=== PATIENT | female | born 1940 | race Caucasian/White ===

== ENCOUNTER 2017-05-19 13:31 | Emergency (ER) | payer OTHER ==
[~2017-05-19] VITALS: Ht 157.5 cm; Wt 90.3 kg
[~2017-05-19 13:31] MED LIST: ALBU1AER9; AMLO5TAB2 PO; ATEN-175 PO; CHOL100010 PO; LEVO75TA PO; MONT1TAB3 PO; OMEP40CA PO; SERT50TA PO; SYMIN160 INH
[2017-05-19 13:36] VITALS: TEMP 37.3; Ht 157.5 cm; Wt 90.3 kg
--- NOTE | 2017-05-19 14:14 | EMERGENCY ROOM VISIT NOTE ---
History Report prepared by Leanna: Nickolas Sow Under the Supervision of: Dr. Behzad Weeks M.D. First contact with patient: 14:00 Chief Complaint: SWELLING TO EXTREMITY Stated Complaint: SWELLING IN FEET AND ANKLES, HYPERTENSION History of Present Illness The patient is a 76 year old female who presents to the Emergency Room with complaints of intermittent edema to her lower extremities that started a couple of weeks ago. The patient admits that her swelling is relieved after laying down and propping her legs up. She reports that as the day goes on her swelling worsens. The patient states that she is currently experiencing the lower extremity edema. She states that her PCP retired and she cannot get an appointment until November. The patient admits that she has another appointment with someone else in July. She admits that she has children. The patient denies wearing compression socks. Source of History: patient Onset: a couple of weeks ago Position: leg (bilateral) Quality: other (swelling) Timing: intermittent Modifying Factors (Worsening): other (standing up) Modifying Factors (Relieving): other (elevating legs, laying down) Review of Systems See HPI for pertinent positives & negatives. A total of 10 systems reviewed and were otherwise negative. Past Medical & Surgical Medical Problems: (1) Asthma (2) Depressive disorder (3) GERD (gastroesophageal reflux disease) (4) HTN (hypertension) (5) Hypothyroidism (6) Multiple sclerosis Surgical Problems: (1) History of appendectomy (2) History of cervical spinal surgery (3) History of cholecystectomy (4) History of lumbar surgery Family History Patient reports no known family medical history. Social History Smoking Status: Never Smoker Housing Status: lives alone Occupation Status: retired Current/Historical Medications Scheduled Amlodipine Besylate (Norvasc), 10 MG PO DAILY Atorvastatin (Lipitor), Unknown Dose PO DAILY Baclofen (Baclofen), 20 MG PO HS Fluticasone Propionate (Flovent Hfa), 2 PUFFS INH BID Hydrochlorothiazide (Hctz), 1 TAB PO DAILY Levothyroxine Sodium (Synthroid), 75 MCG PO DAILY Metoprolol Tartrate (Lopressor) (Lopressor), 100 MG PO BID Montelukast Sodium (Singulair), 10 MG PO DAILY Omeprazole (Prilosec), 40 MG PO DAILY Sertraline (Zoloft), 50 MG PO DAILY Miscellaneous Medications Albuterol Sulfate (Proair Respiclick) Allergies Coded Allergies: Naproxen (Unverified Allergy, Severe, GI Bleed, 05/19/17) Morphine and Related (Unverified Adverse Reaction, Intermediate, difficulty breathing, 05/19/17) Fluticasone (Unverified Adverse Reaction, Mild, hives, 05/19/17) Physical Exam Vital Signs Date Time Temp Pulse Resp B/P (MAP) Pulse Ox O2 Delivery O2 Flow Rate FiO2 05/19/17 16:56 58 18 131/74 95 05/19/17 16:24 54 18 132/69 94 05/19/17 15:22 53 18 156/74 94 05/19/17 14:24 96 Room Air 05/19/17 14:24 96 Room Air 05/19/17 14:11 53 05/19/17 13:36 37.3 62 18 127/73 95 Room Air Physical Exam GENERAL: Patient is a healthy-appearing well-nourished 76 year old female. HEAD: Normocephalic atraumatic EYES: Ocular movements intact pupils equal and react to light OROPHARYNX mucous membranes are moist no exudates present no erythema or edema present NECK: Supple no nuchal rigidity CHEST: Good equal expansion LUNGS: Clear and equal to auscultation CARDIAC: Normal S1 and S2 ABDOMEN: Soft nontender no guarding BACK: No CVA tenderness EXTREMITIES: No pain upon palpation normal muscle strength in all groups no clubbing cyanosis or edema. No pitting edema. NEURO: Patient is following commands and answering questions appropriately. Alert and oriented x3 Cranial Nerves 2-12 grossly intact Medical Decision & Procedures ER Provider Diagnostic Interpretation: Radiology results as stated below per my review and radiologist interpretation: CHEST ONE VIEW PORTABLE CLINICAL HISTORY: CHEST PAIN dyspnea COMPARISON STUDY: No previous studies for comparison. FINDINGS: Mild cardiomegaly. Lungs are clear. Diaphragms smooth. IMPRESSION: Mild cardia megaly. Otherwise negative study The above report was generated using voice recognition software. It may contain grammatical, syntax or spelling errors. Electronically signed by: Tyson Turner M.D. 05/19/2017 2:48 PM Dictated Date/Time: 05/19/2017 2:47 PM VENOUS DOPPLER LWR EXT BILA HISTORY: Pain. Edema. Pt c/o b/l swelling COMPARISON STUDY: None. FINDINGS: There is normal compressibility, flow, and augmentation within the bilateral lower extremity deep venous systems. IMPRESSION: No DVT within the right or left lower extremity. The above report was generated using voice recognition software. It may contain grammatical, syntax or spelling errors. Electronically signed by: Tyson Turner M.D. 05/19/2017 4:26 PM Dictated Date/Time: 05/19/2017 4:26 PM Laboratory Results 05/19/17 14:20 Red Blood Count 4.69, Mean Corpuscular Volume 88.9, Mean Corpuscular Hemoglobin 28.8, Mean Corpuscular Hemoglobin Concent 32.4, Mean Platelet Volume 10.3, Neutrophils (%) (Auto) 71.3, Lymphocytes (%) (Auto) 16.8, Monocytes (%) (Auto) 10.2, Eosinophils (%) (Auto) 1.1, Basophils (%) (Auto) 0.2, Neutrophils # (Auto ) 7.23, Lymphocytes # (Auto) 1.70, Monocytes # (Auto) 1.03, Eosinophils # (Auto ) 0.11, Basophils # (Auto) 0.02 05/19/17 14:20 Test 05/19/17 14:20 White Blood Count 10.13 K/uL (4.8-10.8) Red Blood Count 4.69 M/uL (4.2-5.4) Hemoglobin 13.5 g/dL (12.0-16.0) Hematocrit 41.7 % (37-47) Mean Corpuscular Volume 88.9 fL (80-100) Mean Corpuscular Hemoglobin 28.8 pg (25-34) Mean Corpuscular Hemoglobin Concent 32.4 g/dl (32-36) Platelet Count 277 K/uL (130-400) Mean Platelet Volume 10.3 fL (7.4-10.4) Neutrophils (%) (Auto) 71.3 % Lymphocytes (%) (Auto) 16.8 % Monocytes (%) (Auto) 10.2 % Eosinophils (%) (Auto) 1.1 % Basophils (%) (Auto) 0.2 % Neutrophils # (Auto) 7.23 K/uL (1.4-6.5) Lymphocytes # (Auto) 1.70 K/uL (1.2-3.4) Monocytes # (Auto) 1.03 K/uL (0.11-0.59) Eosinophils # (Auto) 0.11 K/uL (0-0.5) Basophils # (Auto) 0.02 K/uL (0-0.2) RDW Standard Deviation 45.1 fL (36.4-46.3) RDW Coefficient of Variation 13.9 % (11.5-14.5) Immature Granulocyte % (Auto) 0.4 % Immature Granulocyte # (Auto) 0.04 K/uL (0.00-0.02) Anion Gap 7.0 mmol/L (3-11) Est Creatinine Clear Calc Drug Dose 56.4 ml/min Estimated GFR () 72.5 Estimated GFR (Non- 62.5 BUN/Creatinine Ratio 9.9 (10-20) Calcium Level 9.3 mg/dl (8.5-10.1) Total Bilirubin 0.4 mg/dl (0.2-1) Direct Bilirubin 0.2 mg/dl (0-0.2) Aspartate Amino Transf (AST/SGOT) 21 U/L (15-37) Alanine Aminotransferase (ALT/SGPT) 26 U/L (12-78) Alkaline Phosphatase 90 U/L (45-117) Total Creatine Kinase 55 U/L (26-192) Creatine Kinase MB 1.0 ng/ml (0.5-3.6) Creatine Kinase MB Ratio 1.8 (0-3.0) Troponin I < 0.015 ng/ml (0-0.045) Pro-B-Type Natriuretic Peptide 209 pg/ml (0-900) Total Protein 7.6 gm/dl (6.4-8.2) Albumin 3.4 gm/dl (3.4-5.0) Lipase 217 U/L (73-393) Labs reviewed by ED physician. Medications Administered Medications (Trade) Dose Ordered Sig/Tisha Route Start Time Stop Time Status Last Admin Dose Admin Hydrochlorothiazide (Hydrochlorothiazide Tab) 25 mg NOW STAT PO 05/19/17 15:38 05/19/17 15:39 DC 05/19/17 16:25 25 MG ECG Indication: other (edema to lower extremities) Rate (beats per minute): 56 Rhythm: sinus bradycardia Findings: no acute ischemic change, no ectopy ED Course 1401: Past medical records reviewed. The patient was evaluated in room C03. A complete history and physical examination was performed. 1538: Ordered Hydrochlorothiazide 25 mg PO. 1644: Upon reexamination the patient is resting comfortably. I discussed results and treatment plan with the patient. She verbalizes agreement and understanding. The patient is ready for discharge. Medical Decision The differential diagnosis includes etiologies such as infections, reactive airway disease, pneumonia, pneumothorax, COPD, CHF, cardiac ischemia, pulmonary embolism, musculoskeletal, gastrointestinal, as well as others were entertained. This is a 76-year-old female who presents emergency department complaining of bilateral leg swelling. I will note that the patient does not appear to have any swelling on examination. In addition the patient's swelling is worse at night and gets better when she raises her legs. Based on this finding I felt that the patient likely would benefit from compression stockings. To ensure that she does not have congestive heart failure she had a chest x-ray and she also has a normal BNP. Her heart is slightly enlarged therefore I will have her follow-up with cardiology. I felt a trauma patient on hydrochlorothiazide but stressed we needed to repeat renal profile with the patient's primary care physician or cardiology. Patient has no evidence of DVT. Patient and daughter were in agreement with the treatment plan. Medication Reconcilliation Current Medication List: was personally reviewed by me Blood Pressure Screening Patient's blood pressure: Elevated blood pressure Blood pressure disposition: Referred to PCP Impression Primary Impression: Swelling of both lower extremities Scribe Attestation The scribe's documentation has been prepared under my direction and personally reviewed by me in its entirety. I confirm that the note above accurately reflects all work, treatment, procedures, and medical decision making performed by me. Departure Information Dispostion Home / Self-Care Prescriptions Hydrochlorothiazide (HCTZ) 25 Mg Tab 1 TAB PO DAILY for 30 Days, #30 TAB Prov: Behzad Weeks MD 05/19/17 Referrals No Doctor, Assigned (PCP) Forms HOME CARE DOCUMENTATION FORM, IMPORTANT VISIT INFORMATION, WORK / SCHOOL INSTRUCTIONS Patient Instructions ED Leg Swelling Bilateral, My [facility] Additional Instructions Follow up with Dr North's office this week You were found to have an elevated blood pressure today (>120 sytolic or >90 diastolic). Per medicare guidelines, you need to follow up with this blood pressure screening with your Primary Care Physician (PCP). For a new PCP call [phone]. You have been examined and treated today on an emergency basis only. This is not a substitute for, or an effort to provide, complete comprehensive medical care. It is impossible to recognize and treat all injuries or illnesses in a single emergency department visit. It is therefore important that you follow up closely with your PCP. Call as soon as possible for an appointment. Thank you for your time and consideration. I look forward to speaking with you again soon. Please don't hesitate to call us if you have any questions.
[2017-05-19 14:24] VITALS: O2SAT 96
[2017-05-19 14:31] LABS: BASO % 0.2 %; BASO ABS # 0.02 K/uL (0-0.2); COMPLETE YES; EOS % 1.1 %; HEMATOCRIT 41.7 % (37-47); IG% 0.4 %; LYMPH % 16.8 %; MEAN CELL VOLUME 88.9 fL (80-100); MEAN CORPUSCULAR HEMOGLOBIN 28.8 pg (25-34); MEAN CORPUSCULAR HGB CONC 32.4 g/dl (32-36); MEAN PLATELET VOLUME 10.3 fL (7.4-10.4); MONO % 10.2 %; NEUT % 71.3 %; PLATELET COUNT 277 K/uL (130-400); RED BLOOD COUNT 4.69 M/uL (4.2-5.4); WHITE BLOOD COUNT 10.13 K/uL (4.8-10.8)
[2017-05-19] MEDS ORDERED: FLVHFA110 INH (14:33)
[2017-05-19] MEDS ORDERED: ATOR10TA88 PO (14:33)
[2017-05-19] MEDS ORDERED: METO100T14 PO (14:33)
[2017-05-19] MEDS ORDERED: LRS20 PO (14:33)
[2017-05-19] MEDS ORDERED: AMLO10TA2 PO (14:33)
[2017-05-19] MEDS ORDERED: OMEP40CA41 PO (14:33)
[2017-05-19] MEDS ORDERED: ALBU18002 (14:33)
[2017-05-19 14:47] LABS: ALT/SGPT 26 U/L (12-78); BLOOD UREA NITROGEN 9 mg/dl (7-18); BUN/CREATININE RATIO 9.9 (10-20); CALCIUM 9.3 mg/dl (8.5-10.1); CARBON DIOXIDE 29 mmol/L (21-32); CHLORIDE 105 mmol/L (98-107); GLUCOSE 84 mg/dl (70-99); POTASSIUM 4.6 mmol/L (3.5-5.1); SODIUM 141 mmol/L (136-145)
--- NOTE | 2017-05-19 14:49 | DIAGNOSTIC IMAGING REPORT ---
CHEST ONE VIEW PORTABLE CLINICAL HISTORY: CHEST PAIN dyspnea COMPARISON STUDY: No previous studies for comparison. FINDINGS: Mild cardiomegaly. Lungs are clear. Diaphragms smooth. IMPRESSION: Mild cardia megaly. Otherwise negative study The above report was generated using voice recognition software. It may contain grammatical, syntax or spelling errors. Electronically signed by: Tyson Turner M.D. 05/19/2017 2:48 PM Dictated Date/Time: 05/19/2017 2:47 PM
[2017-05-19 14:53] LABS: ALKALINE PHOSPHATASE 90 U/L (45-117); AST/SGOT 21 U/L (15-37); CKMB/CK RATIO 1.8 (0-3.0)
[2017-05-19] MEDS ORDERED: HYDROCHLOROTHIAZIDE 25 MG TAB PO STA (15:38)
[2017-05-19] MEDS ORDERED: HYDR25TA4 PO (15:40)
--- NOTE | 2017-05-19 16:27 | DIAGNOSTIC IMAGING REPORT ---
VENOUS DOPPLER LWR EXT BILA HISTORY: Pain. Edema. Pt c/o b/l swelling COMPARISON STUDY: None. FINDINGS: There is normal compressibility, flow, and augmentation within the bilateral lower extremity deep venous systems. IMPRESSION: No DVT within the right or left lower extremity. The above report was generated using voice recognition software. It may contain grammatical, syntax or spelling errors. Electronically signed by: Tyson Turner M.D. 05/19/2017 4:26 PM Dictated Date/Time: 05/19/2017 4:26 PM
[2017-05-19 16:56] VITALS: BP 131/74; PULSE 58; O2SAT 95
== END 2017-05-19 16:57 | disposition home or self-care (01) ==
LOC: C.EDB 13:33 → C.EDC 16:57
DX: R60.0 Localized edema (principal); M79.604 Pain in right leg; M79.605 Pain in left leg; I10 Essential (primary) hypertension; E03.9 Hypothyroidism, unspecified; G35 Multiple sclerosis; Z79.899 Other long term (current) drug therapy

== ENCOUNTER → 2017-09-26 | Outpatient (CLI) | payer OTHER ==
[~2017-09-26] MED LIST changes: +ALBU18002; -ALBU1AER9; +AMLO10TA2 PO; -AMLO5TAB2 PO; -ATEN-175 PO; +ATOR10TA82 PO; -CHOL100010 PO; +FLVHFA110 INH; +HYDR25TA4 PO; +LRS20 PO; +METO100T14 PO; -OMEP40CA PO; +OMEP40CA41 PO; -SYMIN160 INH
== END | disposition home or self-care (01) ==
LOC: C.LABPBG 08:26
PROVIDERS: ATTEND Physician Assistant
DX: Z13.21 Encounter for screening for nutritional disorder (principal)

== ENCOUNTER → 2018-01-15 | Outpatient (CLI) | payer OTHER ==
--- NOTE | 2018-01-15 13:30 | DIAGNOSTIC IMAGING REPORT ---
NUCLEAR GASTRIC EMPTYING STUDY HISTORY: Gastroparesis. COMPARISON: None. TECHNIQUE: Following the oral administration of 1.1 mCi of technetium 99m sulfur colloid in egg sandwich and 8 ounces of water, static abdominal images are obtained anteriorly and posteriorly at 0 minutes, 1 hour, 2 hour, and 4 hour time intervals. Gastric emptying was calculated utilizing the geometric mean method. FINDINGS: There is approximately 74% activity remaining at the 1 hour time interval (normal is less than 90%), 58% remaining at the 2 hour time interval (normal is less than 60%), and 34% activity remaining at the 4 hour time interval (normal is less than 10%). IMPRESSION: Delayed gastric emptying at the 4 hour time interval as described above. Electronically signed by: Adria Ortega M.D. 01/15/2018 1:29 PM Dictated Date/Time: 01/15/2018 1:26 PM
== END | disposition home or self-care (01) ==
LOC: C.NUCL 08:08
PROVIDERS: ATTEND Internal Medicine Gastroenterology
DX: R11.0 Nausea (principal)

== ENCOUNTER 2022-05-18 20:28 | Inpatient (IN) ==
[2022-05-18 21:14] LABS: Basophils # (auto) 0.03 K/uL (0-0.2); Basophils % (auto) 0.2 %; Eosinophils # (auto) 0.01 K/uL (0-0.50); Eosinophils % (auto) 0.1 %; Hematocrit (blood only) 44.2 % (34.1-44.9); Immature Granulocytes % (auto) 0.6 %; Lymphocytes # (auto) 1.59 K/uL (1.2-3.4); Lymphocytes % (auto) 9.6 %; Mean Corpuscular Hemoglobin 29.1 pg (25.0-34.0); Mean Corpuscular Hgb Conc 33.9 g/dL (32.0-36.0); Mean Corpuscular Volume 85.7 fL (80.0-100.0); Mean Platelet Volume 10.7 fL (9.4-12.3); Monocytes # (auto) 1.05 K/uL (0.24-0.82); Monocytes % (auto) 6.4 %; Neutrophils # (auto) 13.71 K/uL (1.4-6.5); Neutrophils % (auto) 83.1 %; Platelet Count 417 K/uL (130-400); RDW Coefficient of Variation 12.9 % (11.5-14.5); RDW Standard Deviation 40.5 fL (36.4-46.3); Red Blood Count 5.16 M/uL (3.93-5.22); White Blood Count 16.49 K/ul (4.8-10.8)
[2022-05-18 21:15] LABS: Alanine Aminotransferase 65 U/L (7-52); Albumin Globulin Ratio 1.2 (0.9-2); Albumin Level 4.3 gm/dl (3.4-5.0); Alkaline Phosphatase 82 U/L (34-104); Anion Gap 10 (3-11); Aspartate Aminotransferase 38 U/L (13-39); BUN Creatinine Ratio 17.5 (10-20); Bilirubin,Total 0.8 mg/dl (0.2-1.0); Blood Urea Nitrogen 30 mg/dl (6-23); Calcium 9.8 mg/dl (8.5-10.1); Carbon Dioxide 26 mmol/L (21-32); Chloride 98 mmol/L (98-107); Est GFR (African American) 32.2 ml/min; Est GFR (Non-African American) 27.8 ml/min; Globulin 3.7 gm/dl (2.5-4.0); Glucose 148 mg/dl (70-99(Fasting)); Sodium 134 mmol/L (136-145)
[2022-05-18 21:19] LABS: Appearance Urine Cloudy (Clear); Bacteria Urine Automated Negative (Negative); Bilirubin Urine Negative (Negative); Blood Urine 1+ (Negative); Color Urine Yellow; Epithelial Cell Urine Auto >30 /lpf (0-5); Glucose Urine UA Negative (Negative); Ketones Urine Trace (Negative); Leukocyte Esterase Urine 2+ (Negative); Nitrite Urine Negative (Negative); Protein Urine Trace (Negative); Specific Gravity Urine 1.014 (1.000-1.030); Urobilinogen Urine Negative (Negative); pH Urine 5.5 (4.5-7.5)
--- NOTE | 2022-05-18 21:58 | XRay Report ---
SINGLE VIEW CHEST CLINICAL HISTORY: Cough. Atypical chest pain. FINDINGS: An AP, portable, upright chest radiograph is compared to study dated 05/19/2017. The heart i s enlarged noting atherosclerotic calcification of the thoracic aorta. The pulmonary vasculature is n oncongested. Chronic interstitial thickening is similar to previous. The lungs and pleural spaces are clear noting bibasilar scarring/atelectasis. No pneumothorax is seen. The skeletal structures are os teopenic. The bony thorax is grossly intact. Postsurgical change is noted in the lower cervical spine . IMPRESSION: Cardiomegaly with no active disease in the chest. ACT 112: Negative or not required by law. Electronically signed by: Supa Pickett M.D. 05/18/2022 9:57 PM
[2022-05-18 22:03] LABS: Magnesium 1.9 mg/dl (1.7-2.4)
[2022-05-18 22:04] LABS: Troponin I High Sensitivity 7.6 pg/ml (0-14)
[2022-05-18 22:11] LABS: RBC Urine Automated 0-4 /hpf (0-4)
--- NOTE | 2022-05-18 22:41 | Magnetic Resonance Report ---
MRI OF THE BRAIN WITHOUT IV CONTRAST CLINICAL HISTORY: Generalized illness. Weakness and tingling. Reported history of multiple sclerosis. COMPARISON STUDY: MRI of the brain dated 09/03/2006. TECHNIQUE: MRI of the brain was performed utilizing various T1 and T2-weighted sequences in the axial , sagittal, and coronal planes. IV contrast was not administered for this examination. The examinatio n is performed using the multiple sclerosis protocol. FINDINGS: Brain parenchyma: There is age-related involutional change. Moderate to advanced patchy foci of T2 si gnal abnormality are seen throughout the subcortical and periventricular white matter. There is no he morrhage or mass effect. There is no restricted diffusion typical for acute ischemia. Teresa-white jacobo er differentiation is preserved. No extra-axial fluid collection is seen. The cerebellar tonsils are normal in configuration. Ventricles, sulci, and cisterns: Prominent secondary to involutional change. Pituitary and sella: Unremarkable. Intracranial vasculature: Normal flow voids are maintained at the skull base. Orbits: The bony orbits are grossly intact. Orbital contents are normal in appearance noting bilatera l ocular lens implants. Sinuses and mastoids: There is trace mucosal thickening within the maxillary antra. The remaining par anasal sinuses and mastoid air cells are clear. Calvarium: Unremarkable. Cervical cord: Partially visualized cervical spinal cord is normal in morphology and signal intensity . IMPRESSION: 1. There is no hemorrhage, mass effect, or evidence of acute ischemia. 2. There are moderate to advanced patchy foci of signal abnormality seen throughout the subcortical a nd periventricular white matter. Some of this likely represents microangiopathic change. A superimpos ed demyelinating process is not excluded. White matter change has somewhat progressed as compared to 2006. ACT 112: Negative or not required by law. Electronically signed by: Supa Pickett M.D. 05/18/2022 10:38 PM
[2022-05-18] MEDS ORDERED: cefTRIAXone SODIUM 2,000 MG/70 ML BAG IV STA (22:50)
--- NOTE | 2022-05-18 23:26 | Emergency Department Note ---
History of Present Illness General Chief complaint: Illness Stated complaint: MS FLAIR, TINGLING HANDS LEGS, BOWEL ISSUES Time Seen by Provider: 05/18/22 21:27 History of Present Illness This 81-year-old with a distant history of MS currently in remission presents to the ER complaining of generalized numbness and tingling with feeling ill difficulty ambulating concerning she has an MS flare Location: Generalized Quality: Weak and tingly Severity: Moderate Duration: Past 2 days Timing: Started few days ago Context: Patient was concerned and came in Modifying factors: better with rest; worse with activity Patient states a few years ago she was told she was in remission and no longer was seeing a neurologist. She is currently taking nothing for her MS. She states over the past few days she had increased tingling and numbness and concerned she has an MS flare again. Patient also complains of cough and congestion. Patient denies chest pain, dyspnea, localized numbness or tingling, abdominal pain, vomiting, diarrhea. She does not feel comfortable going home. She states she feels too weak to walk. Home Medications Medication Instructions Recorded Confirmed Type albuterol sulfate 90 mcg/actuation 2 puffs inhalation Q6H PRN 05/27/19 05/18/22 History aerosol inhaler shortness of breath #1 g levothyroxine 75 mcg tablet 75 mcg PO DAILYBB #30 tabs 05/27/19 05/18/22 History omeprazole 40 mg capsule,delayed 40 mg PO QAM 05/27/19 05/18/22 History release spironolactone 25 mg tablet 12.5 mg PO QAM 05/27/19 05/18/22 History cyclobenzaprine 5 mg tablet 5 mg PO HS PRN Muscle Spasm 02/07/21 05/18/22 History furosemide 20 mg tablet (Lasix) 40 mg PO QAM 02/07/21 05/18/22 History losartan 25 mg tablet (Cozaar) 25 mg PO QAM 02/07/21 05/18/22 History metoprolol tartrate 100 mg tablet 100 mg PO QAM 02/07/21 05/18/22 History (Lopressor) amlodipine 5 mg tablet 5 mg PO DAILY 05/18/22 05/18/22 History dextromethorphan-guaifenesin 30 1 tab PO QAM 05/18/22 05/18/22 History mg-600 mg tablet extended [id number] hr (Mucinex DM) folic acid 1 mg tablet 1 mg PO DAILY 05/18/22 05/18/22 History furosemide 20 mg tablet 20 mg PO DAILY PRN SWELLING 05/18/22 05/18/22 History metoprolol tartrate 100 mg tablet 50 mg PO QPM 05/18/22 05/18/22 History (Lopressor) metronidazole 0.75 % topical gel 1 applic topical DIRECTED 05/18/22 05/18/22 History Allergies Allergy/AdvReac Type Severity Reaction Status Date / Time naproxen Allergy Severe GI Bleed Unverified 05/18/22 23:32 amoxicillin [From Augmentin] Allergy Unknown Unknown Verified 05/18/22 23:51 clavulanic acid Allergy Unknown Unknown Verified 05/18/22 23:51 [From Augmentin] morphine AdvReac Intermediate difficulty Unverified 05/18/22 23:32 breathing fluticasone AdvReac Mild hives Unverified 05/18/22 23:32 Past Med/Surg History Medical History (Updated 05/18/22 @ 23:29 by Debbie Howe PA-C) Asthma Depressive disorder GERD (gastroesophageal reflux disease) HTN (hypertension) Hypothyroidism Multiple sclerosis Surgical History (Updated 05/18/22 @ 23:23 by Debbie Howe PA-C) No pertinent past surgical history Social History Smoking Status: Never smoker Preferred Language: Azeri Feels Safe at Home: Yes Review of Systems A total of 10 systems reviewed and were otherwise negative Physical Exam Vital Signs Vital Signs - 24 hr 05/18/22 20:33 05/18/22 21:41 05/18/22 22:46 Temperature 35.9 C L Temperature Source Temporal Artery Scan Pulse Rate 89 Pulse Rate [Apical] 82 76 Pulse Rhythm [Apical] Regular Respiratory Rate 18 16 17 Respiratory Effort / Characteristics Non-Labored Blood Pressure 104/67 Blood Pressure [Right Arm] 129/76 130/76 Blood Pressure Mean 79 Blood Pressure Mean [Right Arm] 93 94 Blood Pressure Position Sitting Pulse Oximetry 96 97 98 Oxygen Delivery Method Room Air Room Air Sepsis Recent Fever Within 48 Hours No Sepsis New/Unexplained Change in Mental Status N/A Sepsis Action Taken by Nursing No Action Required VITALS: Vitals are noted on the nurse's note and reviewed by myself. Vital signs stable. GENERAL: Pleasant female following commands, in no acute distress, nondiaphoretic, well-developed well-nourished. SKIN: The skin was without rashes, erythema, edema, or bruising. There is no tenting of the skin. Capillary reflex less than 2 seconds. HEAD: Normocephalic atraumatic. EARS: External auditory canals clear, EYES: Pupils equal round and reactive to light and accommodation. Conjunctivae without injection, sclerae without icterus. Extraocular movements intact. NOSE: Patent, turbinates without inflammation or discharge. MOUTH: Mucous membranes moist. Pharynx without erythema or exudate. Uvula midline. Airway patent. Tongue does not deviate. NECK: Supple without nuchal rigidity. No lymphadenopathy. No thyromegaly. Cervical spine is nontender. No JVD. HEART: Regular rate and rhythm LUNGS: Clear to auscultation bilaterally without wheezes, rales or rhonchi. No retractions or accessory muscle use. ABDOMEN: Positive bowel sounds x 4. Normal tympanic percussion. Soft, nontender, without masses or organomegaly. Vo sign negative. No guarding or rebound tenderness. No CVA tenderness MUSCULOSKELETAL: No muscle atrophy, erythema, or edema noted. 5-5 strength throughout. NEURO: Patient was alert and oriented to person place and time. Normal sensation to light and sharp touch. No focal neurological deficits. Course Administered Medications Sodium Chloride (Nss 1000ml) 1,000 mls @ 100 mls/hr IV .Q10H STA Stop: 05/19/22 09:50 Last Admin: 05/19/22 00:33 Dose: 100 mls/hr Documented By: SIA Discontinued Medications Ceftriaxone Sodium (Rocephin) 2,000 mg in 70 mls @ 140 mls/hr IV NOW STA Stop: 05/18/22 23:19 Last Infusion: 05/19/22 00:24 Dose: 0 mls/hr Documented By: Admin: 05/18/22 23:53 Dose: 140 mls/hr Documented By: SIA Sodium Chloride (Nss 1000ml) 500 mls @ 999 mls/hr IV .Q31M ONE Stop: 05/18/22 23:57 Last Infusion: 05/19/22 00:25 Dose: 0 mls/hr Documented By: Admin: 05/18/22 23:53 Dose: 999 mls/hr Documented By: SIA Medical Decision Making Medical Records Attestation: I reviewed the patient's medical records. Home Medications Current Medication List: was personally reviewed by me Laboratory Data Attestation: I reviewed the patient's lab results. Result diagrams: 05/18/22 20:45 05/18/22 20:45 Lab Results 05/18/22 05/18/22 05/18/22 Range/Units 20:45 20:45 20:45 WBC 16.49 H (4.8-10.8) K/ul RBC 5.16 (3.93-5.22) M/uL Hgb 15.0 (12.0-16.0) g/dl Hct 44.2 (34.1-44.9) % MCV 85.7 (80.0-100.0) fL MCH 29.1 (25.0-34.0) pg MCHC 33.9 (32.0-36.0) g/dL RDW Std Deviation 40.5 (36.4-46.3) fL RDW Coeff of Bita 12.9 (11.5-14.5) % Plt Count 417 H (130-400) K/uL MPV 10.7 (9.4-12.3) fL Immature Gran % (Auto) 0.6 % Neut % (Auto) 83.1 % Lymph % (Auto) 9.6 % [place] % (Auto) 6.4 % Eos % (Auto) 0.1 % Baso % (Auto) 0.2 % Neut # (Auto) 13.71 H (1.4-6.5) K/uL Lymph # (Auto) 1.59 (1.2-3.4) K/uL [place] # (Auto) 1.05 H (0.24-0.82) K/uL Eos # (Auto) 0.01 (0-0.50) K/uL Baso # (Auto) 0.03 (0-0.2) K/uL Immature Gran # (Auto) 0.10 H (0.00-0.02) K/uL Sodium 134 L (136-145) mmol/L Potassium 4.0 (3.5-5.1) mmol/L Chloride 98 (98-107) mmol/L Carbon Dioxide 26 (21-32) mmol/L Anion Gap 10 (3-11) BUN 30 H (6-23) mg/dl Creatinine 1.71 H (0.6-1.2) mg/dl Est Cr Clr Drug Dosing Not Reportable Est GFR ( Amer) 32.2 ml/min Est GFR (Non-Af Amer) 27.8 ml/min BUN/Creatinine Ratio 17.5 (10-20) Glucose 148 H (70-99(Fasting)) mg/dl Lactate (0.4-2.0) mmol/L Calcium 9.8 (8.5-10.1) mg/dl Magnesium 1.9 (1.7-2.4) mg/dl Total Bilirubin 0.8 (0.2-1.0) mg/dl AST 38 (13-39) U/L ALT 65 H (7-52) U/L Alkaline Phosphatase 82 (34-104) U/L Total Creatine Kinase 52 (26-192) U/L Troponin I High Sens 7.6 (0-14) pg/ml Total Protein 8.0 (6.0-8.3) gm/dl Albumin 4.3 (3.4-5.0) gm/dl Globulin 3.7 (2.5-4.0) gm/dl Albumin/Globulin Ratio 1.2 (0.9-2) TSH (0.300-4.500) uIu/ml Urine Color Urine Appearance (Clear) Urine pH (4.5-7.5) Ur Specific [place] (1.000-1.030) Urine Protein (Negative) Urine Glucose (UA) (Negative) Urine Ketones (Negative) Urine Blood (Negative) Urine Nitrite (Negative) Urine Bilirubin (Negative) Urine Urobilinogen (Negative) Ur Leukocyte Esterase (Negative) Urine WBC (Auto) (0-5) /hpf Urine RBC (Auto) (0-4) /hpf U Hyaline Cast (Auto) (0-5) /lpf U Epithel Cells (Auto) (0-5) /lpf Urine Bacteria (Auto) (Negative) Urine Yeast SARS-CoV-2 (PCR) (Negative) 05/18/22 05/18/22 05/18/22 Range/Units 20:45 21:07 21:42 WBC (4.8-10.8) K/ul RBC (3.93-5.22) M/uL Hgb (12.0-16.0) g/dl Hct (34.1-44.9) % MCV (80.0-100.0) fL MCH (25.0-34.0) pg MCHC (32.0-36.0) g/dL RDW Std Deviation (36.4-46.3) fL RDW Coeff of Bita (11.5-14.5) % Plt Count (130-400) K/uL MPV (9.4-12.3) fL Immature Gran % (Auto) % Neut % (Auto) % Lymph % (Auto) % [place] % (Auto) % Eos % (Auto) % Baso % (Auto) % Neut # (Auto) (1.4-6.5) K/uL Lymph # (Auto) (1.2-3.4) K/uL [place] # (Auto) (0.24-0.82) K/uL Eos # (Auto) (0-0.50) K/uL Baso # (Auto) (0-0.2) K/uL Immature Gran # (Auto) (0.00-0.02) K/uL Sodium (136-145) mmol/L Potassium (3.5-5.1) mmol/L Chloride (98-107) mmol/L Carbon Dioxide (21-32) mmol/L Anion Gap (3-11) BUN (6-23) mg/dl Creatinine (0.6-1.2) mg/dl Est Cr Clr Drug Dosing Est GFR ( Amer) ml/min Est GFR (Non-Af Amer) ml/min BUN/Creatinine Ratio (10-20) Glucose (70-99(Fasting)) mg/dl Lactate (0.4-2.0) mmol/L Calcium (8.5-10.1) mg/dl Magnesium (1.7-2.4) mg/dl Total Bilirubin (0.2-1.0) mg/dl AST (13-39) U/L ALT (7-52) U/L Alkaline Phosphatase (34-104) U/L Total Creatine Kinase (26-192) U/L Troponin I High Sens (0-14) pg/ml Total Protein (6.0-8.3) gm/dl Albumin (3.4-5.0) gm/dl Globulin (2.5-4.0) gm/dl Albumin/Globulin Ratio (0.9-2) TSH 2.182 (0.300-4.500) uIu/ml Urine Color Yellow Urine Appearance Cloudy A (Clear) Urine pH 5.5 (4.5-7.5) Ur Specific [place] 1.014 (1.000-1.030) Urine Protein Trace H (Negative) Urine Glucose (UA) Negative (Negative) Urine Ketones Trace H (Negative) Urine Blood 1+ H (Negative) Urine Nitrite Negative (Negative) Urine Bilirubin Negative (Negative) Urine Urobilinogen Negative (Negative) Ur Leukocyte Esterase 2+ H (Negative) Urine WBC (Auto) 10-30 H (0-5) /hpf Urine RBC (Auto) 0-4 (0-4) /hpf U Hyaline Cast (Auto) 1-5 (0-5) /lpf U Epithel Cells (Auto) >30 H (0-5) /lpf Urine Bacteria (Auto) Negative (Negative) Urine Yeast Not Reportable SARS-CoV-2 (PCR) POSITIVE A* (Negative) 05/19/22 Range/Units 01:14 WBC (4.8-10.8) K/ul RBC (3.93-5.22) M/uL Hgb (12.0-16.0) g/dl Hct (34.1-44.9) % MCV (80.0-100.0) fL MCH (25.0-34.0) pg MCHC (32.0-36.0) g/dL RDW Std Deviation (36.4-46.3) fL RDW Coeff of Bita (11.5-14.5) % Plt Count (130-400) K/uL MPV (9.4-12.3) fL Immature Gran % (Auto) % Neut % (Auto) % Lymph % (Auto) % [place] % (Auto) % Eos % (Auto) % Baso % (Auto) % Neut # (Auto) (1.4-6.5) K/uL Lymph # (Auto) (1.2-3.4) K/uL [place] # (Auto) (0.24-0.82) K/uL Eos # (Auto) (0-0.50) K/uL Baso # (Auto) (0-0.2) K/uL Immature Gran # (Auto) (0.00-0.02) K/uL Sodium (136-145) mmol/L Potassium (3.5-5.1) mmol/L Chloride (98-107) mmol/L Carbon Dioxide (21-32) mmol/L Anion Gap (3-11) BUN (6-23) mg/dl Creatinine (0.6-1.2) mg/dl Est Cr Clr Drug Dosing Est GFR ( Amer) ml/min Est GFR (Non-Af Amer) ml/min BUN/Creatinine Ratio (10-20) Glucose (70-99(Fasting)) mg/dl Lactate 0.8 (0.4-2.0) mmol/L Calcium (8.5-10.1) mg/dl Magnesium (1.7-2.4) mg/dl Total Bilirubin (0.2-1.0) mg/dl AST (13-39) U/L ALT (7-52) U/L Alkaline Phosphatase (34-104) U/L Total Creatine Kinase (26-192) U/L Troponin I High Sens (0-14) pg/ml Total Protein (6.0-8.3) gm/dl Albumin (3.4-5.0) gm/dl Globulin (2.5-4.0) gm/dl Albumin/Globulin Ratio (0.9-2) TSH (0.300-4.500) uIu/ml Urine Color Urine Appearance (Clear) Urine pH (4.5-7.5) Ur Specific [place] (1.000-1.030) Urine Protein (Negative) Urine Glucose (UA) (Negative) Urine Ketones (Negative) Urine Blood (Negative) Urine Nitrite (Negative) Urine Bilirubin (Negative) Urine Urobilinogen (Negative) Ur Leukocyte Esterase (Negative) Urine WBC (Auto) (0-5) /hpf Urine RBC (Auto) (0-4) /hpf U Hyaline Cast (Auto) (0-5) /lpf U Epithel Cells (Auto) (0-5) /lpf Urine Bacteria (Auto) (Negative) Urine Yeast SARS-CoV-2 (PCR) (Negative) Imaging Data Attestation: I personally reviewed and interpreted this imaging study as follows: Radiologist's Impression: Chest X-Ray 05/18/22 20:38 SINGLE VIEW CHEST CLINICAL HISTORY: Cough. Atypical chest pain. FINDINGS: An AP, portable, upright chest radiograph is compared to study dated 05/19/2017. The heart is enlarged noting atherosclerotic calcification of the thoracic aorta. The pulmonary vasculature is noncongested. Chronic interstitial thickening is similar to previous. The lungs and pleural spaces are clear noting bibasilar scarring/atelectasis. No pneumothorax is seen. The skeletal structures are osteopenic. The bony thorax is grossly intact. Postsurgical change is noted in the lower cervical spine. IMPRESSION: Cardiomegaly with no active disease in the chest. ACT 112: Negative or not required by law. Electronically signed by: Supa Pickett M.D. 05/18/2022 9:57 PM Brain MRI 05/18/22 21:34 MRI OF THE BRAIN WITHOUT IV CONTRAST CLINICAL HISTORY: Generalized illness. Weakness and tingling. Reported history of multiple sclerosis. COMPARISON STUDY: MRI of the brain dated 09/03/2006. TECHNIQUE: MRI of the brain was performed utilizing various T1 and T2-weighted sequences in the axial, sagittal, and coronal planes. IV contrast was not administered for this examination. The examination is performed using the multiple sclerosis protocol. FINDINGS: Brain parenchyma: There is age-related involutional change. Moderate to advanced patchy foci of T2 signal abnormality are seen throughout the subcortical and periventricular white matter. There is no hemorrhage or mass effect. There is no restricted diffusion typical for acute ischemia. Teresa-white matter differentiation is preserved. No extra-axial fluid collection is seen. The cerebellar tonsils are normal in configuration. Ventricles, sulci, and cisterns: Prominent secondary to involutional change. Pituitary and sella: Unremarkable. Intracranial vasculature: Normal flow voids are maintained at the skull base. Orbits: The bony orbits are grossly intact. Orbital contents are normal in appearance noting bilateral ocular lens implants. Sinuses and mastoids: There is trace mucosal thickening within the maxillary antra. The remaining paranasal sinuses and mastoid air cells are clear. Calvarium: Unremarkable. Cervical cord: Partially visualized cervical spinal cord is normal in morphology and signal intensity. IMPRESSION: 1. There is no hemorrhage, mass effect, or evidence of acute ischemia. 2. There are moderate to advanced patchy foci of signal abnormality seen throughout the subcortical and periventricular white matter. Some of this likely represents microangiopathic change. A superimposed demyelinating process is not excluded. White matter change has somewhat progressed as compared to 2007. ACT 112: Negative or not required by law. Electronically signed by: Supa Pickett M.D. 05/18/2022 10:38 PM MDM Narrative Prior records/ancillary studies reviewed and summarized above. Nursing notes reviewed. Additional history obtained from family. The patient's history was concerning for weakness tingling cold symptoms Differential diagnosis: Etiologies such as metabolic, infection, hypo/hyperglycemia, electrolyte abnormalities, cardiac sources, intracerebral event, toxicologic, neurologic, as well as others were entertained. Physical examination: As above. ER treatment provided: IV Lock An order was placed for continuous cardiac monitoring. The monitor shows a rate of 60-100 with a sinus rhythm. Rocephin On reassessment the patient felt better. Diagnostics interpretation by me: ECG: Ordered for weakness EKG: Normal sinus, normal intervals, no acute ST-T wave changes. Impression normal sinus rhythm interpreted by myself I think arrhythmia is unlikely. EKG shows normal sinus rhythm with no interval abnormalities such as QT prolongation or WPW. There are no findings to suggest Brugada syndrome. Cardiac monitoring in the emergency department reveals no tachycardic or bradycardic dysrhythmia. Hypertrophic cardiomyopathy was considered but there are no clear historical elements pointing toward this. EKG is not suggestive. The QRS voltage is not extremely large and there are no suggestive Q waves. The labs revealed leukocytosis, urine concerning for infection and sent for culture Acute kidney injury Imaging studies: As above Consultation: A consultation was placed with the hospitalist. The case was discussed and diagnostics were reviewed. The patient was evaluated in the ER for further treatment. I spoke to neurology, Dr. Mehta, and recommends treating the infection and no steroids currently. Exam and history seem consistent with possible MS flare with UTI and COVID. Patient was given antibiotics and fluids as above. She also has an acute kidney injury. Medicine was consulted. She will be evaluated for admission. By the evaluation outlined above emergent etiologies such as electrolyte abnormalities, cardiac sources, intracerebral event, toxologic, abnormalities blood glucose, metabolic, as well as others were deemed relatively unlikely. The pt informed about the findings as listed above. All questions were answered and pleased with the treatment. The chart was completed utilizing [employer] voice recognition software. Grammatical errors, random word insertions, pronoun errors, and incomplete sen tences are an occassional consequence of this system due to software limitations, ambient noise, and hardware issues. Any formal questions or concerns about the content, text, or information contained within the body of this dictation should be directly addressed to the physician esl instructional assistant for clar ification. Impression & Plan Multiple sclerosis, Acute UTI, COVID-19, PATY (acute kidney injury) Discharge Plan Visit Data Chief Complaint: Illness Stated Complaint: MS FLAIR, TINGLING HANDS LEGS, BOWEL ISSUES ED Provider: Moe An ED Midlevel Provider: Debbie Howe Discharge Problem: Multiple sclerosis, Acute UTI, COVID-19, PATY (acute kidney injury) Patient Disposition: Admitted As Inpatient Condition: Fair Forms Stand Alone Forms: My [facility] Prescriptions Prescriptions: No Action levothyroxine 75 mcg tablet 75 mcg PO DAILYBB Qty: 30 omeprazole 40 mg capsule,delayed release(DR/EC) 40 mg PO QAM Label Comments: 40 mg PO TAke 1 capsule 30 min before breakfast and dinner; Rx Instructions: 40 mg PO TAke 1 capsule 30 min before breakfast and dinner; albuterol sulfate 90 mcg/actuation HFA aerosol inhaler 2 puffs inhalation Q6H PRN (Reason: shortness of breath) Qty: 1 spironolactone 25 mg tablet 12.5 mg PO QAM Label Comments: 25 mg PO Take 1/2 tablet daily; Rx Instructions: 25 mg PO Take 1/2 tablet daily; metoprolol tartrate [Lopressor] 100 mg tablet 100 mg PO QAM Rx Instructions: Take 1 tablet in the morning and 1/2 tablet in the afternoon. losartan [Cozaar] 25 mg tablet 25 mg PO QAM furosemide [Lasix] 20 mg tablet 40 mg PO QAM cyclobenzaprine 5 mg tablet 5 mg PO HS PRN (Reason: Muscle Spasm) metoprolol tartrate [Lopressor] 100 mg tablet 50 mg PO QPM amlodipine 5 mg tablet 5 mg PO DAILY folic acid 1 mg tablet 1 mg PO DAILY furosemide 20 mg tablet 20 mg PO DAILY PRN (Reason: SWELLING) Mucinex DM 30-600 mg Tablet Extended Release 12 Hr 1 tab PO QAM metronidazole 0.75 % gel 1 applic TOPICAL DIRECTED Referrals Referrals: Valerie Tan MD [Primary Care Provider] -
[2022-05-18] MEDS ORDERED: SODIUM CHLORIDE 0.9% 1000ML 500 ML IV ONE (23:27)
[2022-05-18] MEDS ORDERED: SODIUM CHLORIDE 0.9% 1000ML 1,000 ML IV STA (23:51)
[2022-05-19 02:04] LABS: BUN Creatinine Ratio 18.8 (10-20); Calcium 9.2 mg/dl (8.5-10.1); Creatinine Clr Calc Pharmacy 30.3 ml/min; Est GFR (African American) 36.6 ml/min; Est GFR (Non-African American) 31.5 ml/min; Potassium 4.2 mmol/L (3.5-5.1)
[2022-05-19] MEDS ORDERED: LORazepam 0.5 MG TAB PO STA (02:09)
[2022-05-19] MEDS ORDERED: DOXYCYCLINE HYCLATE 100 MG CAP PO STA (02:10)
--- NOTE | 2022-05-19 02:10 | History & Physical Report ---
Date of Service May 19, 2022 Assessment & Plan (1) Sepsis: Plan: Severe sepsis SIRS plus ARF on CKD Possible sources : COVID-19 illness/complicated bronchitis Complicated UTI MS flareup secondary to above chronic diastolic heart failure (EF 55 to 60%, TTE 2017), patient on the dry side HTN, stable hx CVA Prediabetes, hemoglobin A1c of 5.9 last 2020 polymyalgia rheumatica currently off steroid Rx GMF CS Doxycycline for complicated bronchitis Cefepime for complicated UTI Monitor creatinine response to IVF Appropriate to hold home diuretic, spironolactone, losartan until creatinine back to baseline Neurology consult Re: MS flareup (ER provider already in touch with Dr. Mehta who does not recommend high-dose steroids for now.) DVT prophylaxis. Heparin subcu DNR Patient requesting for her niece to be updated of her progress. Ms. Radhika Beck, contact #[phone]. Text document was generated using Tealet voice recognition software. It may contain grammatical or spelling errors. Kindly contact undersigned for clarification of any documentation item in question. History of Present Illness Chief Complaint: leg weakness, inability to walk, MS flare Primary Care Provider: Valerie Tan MD History obtained from patient and records. Medical history significant for chronic diastolic heart failure (EF 55 to 60%, TTE 2017), HTN, CVA, multiple sclerosis, MGUS, CRI (baseline creatinine 1.2), prediabetes, polymyalgia rheumatica currently off steroid Rx, past tobacco abuse. Patient not feeling well the last 2 days. Junky cough symptoms without chest pain or shortness of breath. Denies abdominal pain, dysuria symptoms. Poor appetite. Bilateral leg weakness, difficulty in ambulation reminiscent of MS flareup. Patient has been off Avonex the last 18 months. Achy headache symptoms. Not sure about recent COVID-19 contacts as she had to go to a local [facility] clinic to get a mammogram a few weeks ago. Patient completed COVID-19 vaccination. Ceftriaxone administered at the ER for UTI. 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 Allergies Allergy/AdvReac Type Severity Reaction Status Date / Time naproxen Allergy Severe GI Bleed Unverified 05/18/22 23:32 amoxicillin [From Augmentin] Allergy Unknown Unknown Verified 05/18/22 23:51 clavulanic acid Allergy Unknown Unknown Verified 05/18/22 23:51 [From Augmentin] morphine AdvReac Intermediate difficulty Unverified 05/18/22 23:32 breathing fluticasone AdvReac Mild hives Unverified 05/18/22 23:32 Home Medications Medication Instructions Recorded Confirmed Type albuterol sulfate 90 mcg/actuation 2 puffs inhalation Q6H PRN 05/27/19 05/18/22 History aerosol inhaler shortness of breath #1 g levothyroxine 75 mcg tablet 75 mcg PO DAILYBB #30 tabs 05/27/19 05/18/22 History omeprazole 40 mg capsule,delayed 40 mg PO QAM 05/27/19 05/18/22 History release spironolactone 25 mg tablet 12.5 mg PO QAM 05/27/19 05/18/22 History cyclobenzaprine 5 mg tablet 5 mg PO HS PRN Muscle Spasm 02/07/21 05/18/22 History furosemide 20 mg tablet (Lasix) 40 mg PO QAM 02/07/21 05/18/22 History losartan 25 mg tablet (Cozaar) 25 mg PO QAM 02/07/21 05/18/22 History metoprolol tartrate 100 mg tablet 100 mg PO QAM 02/07/21 05/18/22 History (Lopressor) amlodipine 5 mg tablet 5 mg PO DAILY 05/18/22 05/18/22 History dextromethorphan-guaifenesin 30 1 tab PO QAM 05/18/22 05/18/22 History mg-600 mg tablet extended [id number] hr (Mucinex DM) folic acid 1 mg tablet 1 mg PO DAILY 05/18/22 05/18/22 History furosemide 20 mg tablet 20 mg PO DAILY PRN SWELLING 05/18/22 05/18/22 History metoprolol tartrate 100 mg tablet 50 mg PO QPM 05/18/22 05/18/22 History (Lopressor) metronidazole 0.75 % topical gel 1 applic topical DIRECTED 05/18/22 05/18/22 History Past Med/Surg History Medical History (Updated 05/19/22 @ 06:54 by Morgan Salgado MD) Asthma Depressive disorder GERD (gastroesophageal reflux disease) HTN (hypertension) Hypothyroidism Multiple sclerosis Surgical History (Updated 05/18/22 @ 23:23 by Debbie Howe PA-C) No pertinent past surgical history Social History Smoking Status: Former smoker Smoking End Date: 1991; Second Hand Exposure: No; Do You Dip or Chew Tobacco: No; Hx Alcohol Use: No Hx Substance Use: No Preferred Language: Estonian 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: No Beliefs That Will Affect Care: None Current Living Situation: Alone Current Living Situation Comment: Lives alone in [facility] Other Information That Helps Us Care for You: No Feels Safe at Home: Yes Safety Concerns: Feels Safe At This Time Assistive Devices: Walker Assistive Devices Comment: Has only been using walker for last week Review of Systems Review of Systems: As per HPI, all other systems reviewed and negative Physical Exam Physical Exam: GENERAL: Comfortable, pleasant, obese, no respiratory distress SKIN: Normal color, warm HEENT: [place] palpebral conjunctivae, no ptosis, dry buccal mucosa NECK : Supple, short neck, no tenderness CHEST : CTA, no tenderness HEART : RRR, no obvious murmurs ABDOMEN: Some distention, nontender EXTREMITIES : Minimal LE swelling, no LE tenderness, no other conspicuous deformities noted NEUROLOGIC : Coherent, no facial asymmetry, MMTS BUE 4/5, BLE 3/5, gait and stance not assessed Results & Data Results & Data ([facility]) Vital Signs (Past 12 Hours) Vital Signs Temp Pulse Pulse Resp BP BP Pulse Ox 05/18/22 22:46 76 17 130/76 98 05/18/22 21:41 82 16 129/76 97 05/18/22 20:33 35.9 C L 89 18 104/67 96 O2 Del Method 05/18/22 22:46 05/18/22 21:41 Room Air 05/18/22 20:33 Room Air Laboratory Results Laboratory Results WBC 16.49 K/ul (4.8-10.8) H 05/18/22 20:45 RBC 5.16 M/uL (3.93-5.22) 05/18/22 20:45 Hgb 15.0 g/dl (12.0-16.0) 05/18/22 20:45 Hct 44.2 % (34.1-44.9) 05/18/22 20:45 MCV 85.7 fL (80.0-100.0) 05/18/22 20:45 MCH 29.1 pg (25.0-34.0) 05/18/22 20:45 MCHC 33.9 g/dL (32.0-36.0) 05/18/22 20:45 RDW Std Deviation 40.5 fL (36.4-46.3) 05/18/22 20:45 RDW Coeff of Bita 12.9 % (11.5-14.5) 05/18/22 20:45 Plt Count 417 K/uL (130-400) H 05/18/22 20:45 MPV 10.7 fL (9.4-12.3) 05/18/22 20:45 Immature Gran % (Auto) 0.6 % 05/18/22 20:45 Neut % (Auto) 83.1 % 05/18/22 20:45 Lymph % (Auto) 9.6 % 05/18/22 20:45 [place] % (Auto) 6.4 % 05/18/22 20:45 Eos % (Auto) 0.1 % 05/18/22 20:45 Baso % (Auto) 0.2 % 05/18/22 20:45 Neut # (Auto) 13.71 K/uL (1.4-6.5) H 05/18/22 20:45 Lymph # (Auto) 1.59 K/uL (1.2-3.4) 05/18/22 20:45 [place] # (Auto) 1.05 K/uL (0.24-0.82) H 05/18/22 20:45 Eos # (Auto) 0.01 K/uL (0-0.50) 05/18/22 20:45 Baso # (Auto) 0.03 K/uL (0-0.2) 05/18/22 20:45 Immature Gran # (Auto) 0.10 K/uL (0.00-0.02) H 05/18/22 20:45 Sodium 135 mmol/L (136-145) L 05/19/22 01:14 Potassium 4.2 mmol/L (3.5-5.1) 05/19/22 01:14 Chloride 99 mmol/L (98-107) 05/19/22 01:14 Carbon Dioxide 25 mmol/L (21-32) 05/19/22 01:14 Anion Gap 11 (3-11) 05/19/22 01:14 BUN 29 mg/dl (6-23) H 05/19/22 01:14 Creatinine 1.54 mg/dl (0.6-1.2) H 05/19/22 01:14 Est Cr Clr Drug Dosing 30.3 ml/min 05/19/22 01:14 Est GFR ( Amer) 36.6 ml/min 05/19/22 01:14 Est GFR (Non-Af Amer) 31.5 ml/min 05/19/22 01:14 BUN/Creatinine Ratio 18.8 (10-20) 05/19/22 01:14 Glucose 108 mg/dl (70-99(Fasting)) H 05/19/22 01:14 Lactate 0.8 mmol/L (0.4-2.0) 05/19/22 01:14 Calcium 9.2 mg/dl (8.5-10.1) 05/19/22 01:14 Magnesium 1.9 mg/dl (1.7-2.4) 05/18/22 20:45 Total Bilirubin 0.8 mg/dl (0.2-1.0) 05/18/22 20:45 AST 38 U/L (13-39) 05/18/22 20:45 ALT 65 U/L (7-52) H 05/18/22 20:45 Alkaline Phosphatase 82 U/L (34-104) 05/18/22 20:45 Total Creatine Kinase 52 U/L (26-192) 05/18/22 20:45 Troponin I High Sens 7.6 pg/ml (0-14) 05/18/22 20:45 Total Protein 8.0 gm/dl (6.0-8.3) 05/18/22 20:45 Albumin 4.3 gm/dl (3.4-5.0) 05/18/22 20:45 Globulin 3.7 gm/dl (2.5-4.0) 05/18/22 20:45 Albumin/Globulin Ratio 1.2 (0.9-2) 05/18/22 20:45 TSH 2.182 uIu/ml (0.300-4.500) 05/18/22 20:45 Urine Color Yellow 05/18/22 21:07 Urine Appearance Cloudy (Clear) A 05/18/22 21:07 Urine pH 5.5 (4.5-7.5) 05/18/22 21:07 Ur Specific [place] 1.014 (1.000-1.030) 05/18/22 21:07 Urine Protein Trace (Negative) H 05/18/22 21:07 Urine Glucose (UA) Negative (Negative) 05/18/22 21:07 Urine Ketones Trace (Negative) H 05/18/22 21:07 Urine Blood 1+ (Negative) H 05/18/22 21:07 Urine Nitrite Negative (Negative) 05/18/22 21:07 Urine Bilirubin Negative (Negative) 05/18/22 21:07 Urine Urobilinogen Negative (Negative) 05/18/22 21:07 Ur Leukocyte Esterase 2+ (Negative) H 05/18/22 21:07 Urine WBC (Auto) 10-30 /hpf (0-5) H 05/18/22 21:07 Urine RBC (Auto) 0-4 /hpf (0-4) 05/18/22 21:07 U Hyaline Cast (Auto) 1-5 /lpf (0-5) 05/18/22 21:07 U Epithel Cells (Auto) >30 /lpf (0-5) H 05/18/22 21:07 Urine Bacteria (Auto) Negative (Negative) 05/18/22 21:07 Urine Yeast Not Reportable 05/18/22 21:07 SARS-CoV-2 (PCR) POSITIVE (Negative) A* 05/18/22 21:42 Impressions Chest X-Ray 05/18/22 20:38 SINGLE VIEW CHEST CLINICAL HISTORY: Cough. Atypical chest pain. FINDINGS: An AP, portable, upright chest radiograph is compared to study dated 05/19/2017. The heart is enlarged noting atherosclerotic calcification of the thoracic aorta. The pulmonary vasculature is noncongested. Chronic interstitial thickening is similar to previous. The lungs and pleural spaces are clear noting bibasilar scarring/atelectasis. No pneumothorax is seen. The skeletal structures are osteopenic. The bony thorax is grossly intact. Postsurgical change is noted in the lower cervical spine. IMPRESSION: Cardiomegaly with no active disease in the chest. ACT 112: Negative or not required by law. Electronically signed by: Supa Pickett M.D. 05/18/2022 9:57 PM Brain MRI 05/18/22 21:34 MRI OF THE BRAIN WITHOUT IV CONTRAST CLINICAL HISTORY: Generalized illness. Weakness and tingling. Reported history of multiple sclerosis. COMPARISON STUDY: MRI of the brain dated 09/03/2006. TECHNIQUE: MRI of the brain was performed utilizing various T1 and T2-weighted sequences in the axial, sagittal, and coronal planes. IV contrast was not administered for this examination. The examination is performed using the multiple sclerosis protocol. FINDINGS: Brain parenchyma: There is age-related involutional change. Moderate to advanced patchy foci of T2 signal abnormality are seen throughout the subcortical and periventricular white matter. There is no hemorrhage or mass effect. There is no restricted diffusion typical for acute ischemia. Teresa-white matter differentiati on is preserved. No extra-axial fluid collection is seen. The cerebellar tonsils are normal in configuration. Ventricles, sulci, and cisterns: Prominent secondary to involutional change. Pituitary and sella: Unremarkable. Intracranial vasculature: Normal flow voids are maintained at the skull base. Orbits: The bony orbits are grossly intact. Orbital contents are normal in appearance noting bilateral ocular lens implants. Sinuses and mastoids: There is trace mucosal thickening within the maxillary antra. The remaining paranasal sinuses and mastoid air cells are clear. Calvarium: Unremarkable. Cervical cord: Partially visualized cervical spinal cord is normal in morphology and signal intensity. IMPRESSION: 1. There is no hemorrhage, mass effect, or evidence of acute ischemia. 2. There are moderate to advanced patchy foci of signal abnormality seen throughout the subcortical and periventricular white matter. Some of this likely represents microangiopathic change. A superimposed demyelinating process is not excluded. White matter change has somewhat progressed as compared to 2006. ACT 112: Negative or not required by law. Electronically signed by: Supa Pickett M.D. 05/18/2022 10:38 PM Diagnostic Findings EKG as per my interpretation :Rate 85, NSR, normal axis, T wave abnormalities septal leads
[2022-05-19] MEDS ORDERED: LORazepam 0.5 MG TAB PO PRN (02:16)
--- NOTE | 2022-05-19 02:20 | Emergency Department Note ---
ED Visit Note I have personally evaluated this patient, examined her and reviewed the pertinent labs and data. I have discussed the case with Katia Howe, the ph ysician fundraising assistant and agree with the plan. Please refer to the PA note This patient has a history of MS and is currently off of steroids. She was concerned she was MS flare she feels weak and tingly diffusely. Her work-up did reveal positive COVID her urine looks suspicious for possible UTI as well. She feels too weak to go home we did extensive work-up including MRI of her brain here Rhona we will see her for likely admission/observation. .
[2022-05-19] MEDS ORDERED: CYCLOBENZAPRINE HCL 5 MG TAB PO PRN (04:31)
[2022-05-19] MEDS ORDERED: PROMETHAZINE HCL 12.5 MG in SODIUM CHLORIDE 0.9% 50 ML IV PRN (04:31)
[2022-05-19] MEDS: CEFEPIME 2,000 MG in SYRINGE 0 ML IV SCH (04:55)
[2022-05-19 06:20] LABS: Basophils # (auto) 0.04 K/uL (0-0.2); Basophils % (auto) 0.3 %; Eosinophils # (auto) 0.06 K/uL (0-0.50); Eosinophils % (auto) 0.4 %; Hematocrit (blood only) 38.9 % (34.1-44.9); Hemoglobin 13.1 g/dl (12.0-16.0); Immature Granulocytes % (auto) 0.6 %; Lymphocytes % (auto) 15.3 %; Mean Corpuscular Hgb Conc 33.7 g/dL (32.0-36.0); Mean Corpuscular Volume 86.1 fL (80.0-100.0); Mean Platelet Volume 10.7 fL (9.4-12.3); Monocytes # (auto) 1.45 K/uL (0.24-0.82); Monocytes % (auto) 9.3 %; Neutrophils # (auto) 11.62 K/uL (1.4-6.5); Neutrophils % (auto) 74.1 %; Platelet Count 317 K/uL (130-400); RDW Standard Deviation 40.4 fL (36.4-46.3); Red Blood Count 4.52 M/uL (3.93-5.22); White Blood Count 15.67 K/ul (4.8-10.8)
[2022-05-19] MEDS: LEVOTHYROXINE SODIUM 75 MCG TABLET PO SCH (06:35)
[2022-05-19] MEDS: HEPARIN SOD 5,000 UNIT/0.5 ML VIAL SQ SCH ×3 (06:35→20:43)
[2022-05-19 06:38] LABS: BUN Creatinine Ratio 18.7 (10-20); Calcium 9.1 mg/dl (8.5-10.1); Creatinine Clr Calc Pharmacy 29.9 ml/min; Est GFR (African American) 37.7 ml/min; Est GFR (Non-African American) 32.6 ml/min; Potassium 3.7 mmol/L (3.5-5.1)
[2022-05-19] MEDS: amLODIPine BESYLATE 5 MG TAB PO SCH (08:04)
[2022-05-19] MEDS: METOPROLOL TARTRATE 100 MG TAB PO SCH (08:04)
[2022-05-19] MEDS: FOLIC ACID 1 MG TAB PO SCH (08:05)
[2022-05-19] MEDS: PANTOprazole 40 MG TAB PO SCH (08:05)
[2022-05-19] MEDS ORDERED: PNEUMOCOCCAL Polysaccharide Vaccine 25mcg/0.5mL vial/Syr IM ONE (09:00)
--- NOTE | 2022-05-19 12:13 | Consultation Report ---
NEUROLOGY CONSULTATION NOTE DATE OF CONSULTATION: 05/19/2022. CHIEF COMPLAINT: Weakness, paresthesias, cough, fatigue HISTORY OF PRESENT ILLNESS: An 81-year-old female with a history of possible relapsed-remitting multiple sclerosis, thought to be in remission, not on disease-modifying therapy, last seen by myself in November of 2018 and prior to that seen in [address] Mg. She was also seen by Cathy Joshi in the past for complaint of headaches in 2016. She does have chronic balance issues and chronic numbness in her feet. She also has progressive memory issues. She explained to me she was diagnosed with multiple sclerosis when she was seeing blue flames around her eyes in the 60s. She does have a history of hypertension. She did have lab work performed in December of 2018 that showed an IgG kappa gammopathy, which may be contributing to her neuropathy. The patient was then referred to hematology for MGUS. In February of 2019, she underwent MRI imaging including MRI of the orbits, thoracic spine, and the brain. MRI of the brain and thoracic spine showed no convincing evidence of demyelination. MRI of the brain showed T2 FLAIR signal changes, which could be microvascular ischemic changes. No abnormal enhancement. MRI of the brain in January of 2021 was also ordered, although not performed. The patient was admitted last evening from the Emergency Department for sepsis and acute renal failure. She was diagnosed with COVID-19 as well as a complicated UTI. She was started on cefepime and doxycycline. I was consulted last evening through the Emergency Department whether or not to start steroids. I have recommended to treat the infection and not start steroids at this time for MS flare. The patient has not been feeling well for 2 days, cough symptoms. She had no chest pain. Poor appetite and leg weakness and difficulty ambulating. She has been off disease-modifying therapy for at least a year and a half. She did complete her COVID-19 vaccination series. ALLERGIES: NAPROXEN, AMOXICILLIN, CLAVULANIC ACID, FLUTICASONE. HOME MEDICATIONS: Albuterol, Synthroid, omeprazole, spironolactone, cyclobenzaprine, Lasix, losartan, metoprolol, amlodipine, folic acid, Lasix, metoprolol, metronidazole. PAST MEDICAL HISTORY: Asthma, depression, gastroesophageal reflux disease, hypertension, hypothyroidism, and possible multiple sclerosis. PAST SURGICAL HISTORY: No pertinent past surgical history. SOCIAL HISTORY: She is a former smoker. No heavy alcohol use. She lives alone. REVIEW OF SYSTEMS: Positive for cough, fatigue, leg weakness. All other review of systems was negative. PHYSICAL EXAMINATION: VITAL SIGNS: Blood pressure 119/70, pulse is 84, respiratory rate is 19, temperature is 37 degrees Celsius, oxygen saturation 95%. Patient was seen and examined on the televideo. She is awake and no distress. Appears tired w mild cough. Speech is clear. No aphasia. EOMI. Eyes midline. Tongue midline. No drift in the upper extremities. No ataxia with finger to nose testing. DIAGNOSTIC TESTING: WBC 15.67, RBC 4.52, hemoglobin 13.1, platelet count 317. Sodium 140, potassium 3.7, chloride 103, carbon dioxide 24, BUN 28, creatinine 1.50, calcium 9.1, ALT 65, total creatine kinase 52. Troponin 7.6. TSH 2.182. Urinalysis was cloudy, trace protein, trace ketones, 1+ blood, 2+ leukocyte esterase, 10-30 wbc's, negative for bacteria. COVID-19 testing was positive PCR. Blood cultures are pending. Urine cultures are pending. IMAGING DATA: Chest x-ray showed cardiomegaly with no active disease in the chest. MRI of the brain without IV contrast showed no hemorrhage, mass effect or evidence of acute ischemia. There is moderate to advanced patchy foci of signal abnormality seen throughout the subcortical, periventricular white matter. Some of this likely represents microangiopathic changes. 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 Previous imaging showed no evidence of demyelination in the thoracic cord or optic nerves. Recent MRI of the brain was not performed with contrast. Differential diagnosis certainly at this point includes a pseudo-exacerbation in the setting of COVID-19 infection versus a urinary tract infection. Agree with treatment and supportive care for COVID-19 as well as following up with urine culture. The patient has been seen by myself in clinic in the past. I will need to arrange for followup and can consider restarting a course of steroids as an outpatient. For now, I would defer on starting steroids. Would obtain PT/OT for any rehabilitation needs. I will otherwise expedite followup with me in clinic. Please contact me with any additional questions or concerns. Job ID: [id number] JESÚS
--- NOTE | 2022-05-19 17:09 | Communication Note ---
Date of Service: May 19, 2022 The patient was seen and examined. She was admitted early this morning with COVID-19 virus infection without any significant respiratory symptoms, possible complicated UTI and bronchitis with history of MS. complains to have a cough but no other significant symptoms. Full progress note will be done tomorrow. Dr Gentry Cedeno
[2022-05-19] MEDS: guaiFENesin/DEXTROM SYRUP 200MG/20MG 10ML UDC PO PRN (17:43)
[2022-05-19] MEDS: METOPROLOL TARTRATE 50 MG TAB PO SCH (20:35)
[2022-05-19] MEDS: DICLOFENAC SOD 1% GEL 100 GM TUBE EXT SCH (20:36)
[2022-05-19] MEDS: DOXYCYCLINE HYCLATE 100 MG CAP PO SCH (20:43)
--- NOTE | 2022-05-19 22:29 | Electrocardiogram Report ---
Test Reason : Blood Pressure : / mmHG Vent. Rate : 083 BPM Atrial Rate : 083 BPM P-R Int : 184 ms QRS Dur : 092 ms QT Int : 374 ms P-R-T Axes : 061 067 063 degrees QTc Int : 439 ms Normal sinus rhythm ST elevation, consider early repolarization, pericarditis, or injury When compared with ECG of 07-FEB-2021 19:57, OR interval has decreased Confirmed by Devin Huff ([id number]) on 05/19/2022 10:29:05 PM Referred By: REFERRED SELF Confirmed By:Devin Huff
[2022-05-20] MEDS: CEFEPIME 2,000 MG in SYRINGE 0 ML IV SCH (05:27)
[2022-05-20] MEDS: HEPARIN SOD 5,000 UNIT/0.5 ML VIAL SQ SCH ×3 (05:27→20:43)
[2022-05-20] MEDS: LEVOTHYROXINE SODIUM 75 MCG TABLET PO SCH (05:30)
[2022-05-20 07:05] LABS: Basophils # (auto) 0.03 K/uL (0-0.2); Basophils % (auto) 0.3 %; Eosinophils # (auto) 0.08 K/uL (0-0.50); Eosinophils % (auto) 0.8 %; Hematocrit (blood only) 36.9 % (34.1-44.9); Hemoglobin 12.4 g/dl (12.0-16.0); Immature Granulocytes # (auto) 0.09 K/uL (0.00-0.02); Immature Granulocytes % (auto) 0.9 %; Lymphocytes # (auto) 1.69 K/uL (1.2-3.4); Lymphocytes % (auto) 16.2 %; Mean Corpuscular Hemoglobin 29.4 pg (25.0-34.0); Mean Corpuscular Hgb Conc 33.6 g/dL (32.0-36.0); Mean Corpuscular Volume 87.4 fL (80.0-100.0); Mean Platelet Volume 10.9 fL (9.4-12.3); Monocytes # (auto) 1.09 K/uL (0.24-0.82); Monocytes % (auto) 10.5 %; Neutrophils # (auto) 7.45 K/uL (1.4-6.5); Neutrophils % (auto) 71.3 %; Platelet Count 277 K/uL (130-400); RDW Coefficient of Variation 13.3 % (11.5-14.5); RDW Standard Deviation 42.3 fL (36.4-46.3); Red Blood Count 4.22 M/uL (3.93-5.22); White Blood Count 10.43 K/ul (4.8-10.8)
[2022-05-20 07:31] LABS: Albumin Level 3.5 gm/dl (3.4-5.0); Bilirubin,Total 0.6 mg/dl (0.2-1.0); Calcium 9.2 mg/dl (8.5-10.1); Magnesium 1.8 mg/dl (1.7-2.4); Potassium 3.9 mmol/L (3.5-5.1)
[2022-05-20 07:37] LABS: Albumin Globulin Ratio 1.2 (0.9-2); BUN Creatinine Ratio 19.8 (10-20); C Reactive Protein 1.95 mg/dl (0-0.5); Creatinine Clr Calc Pharmacy 35.6 ml/min; Est GFR (African American) 46.6 ml/min; Est GFR (Non-African American) 40.2 ml/min; Total Protein 6.5 gm/dl (6.0-8.3)
[2022-05-20] MEDS: DOXYCYCLINE HYCLATE 100 MG CAP PO SCH ×2 (08:38→20:42)
[2022-05-20] MEDS: amLODIPine BESYLATE 5 MG TAB PO SCH (08:38)
[2022-05-20] MEDS: METOPROLOL TARTRATE 100 MG TAB PO SCH (08:38)
[2022-05-20] MEDS: PANTOprazole 40 MG TAB PO SCH (08:38)
[2022-05-20] MEDS: FOLIC ACID 1 MG TAB PO SCH (08:38)
[2022-05-20] MEDS: DICLOFENAC SOD 1% GEL 100 GM TUBE EXT SCH ×2 (08:39→20:42)
[2022-05-20] MEDS: guaiFENesin/DEXTROM SYRUP 200MG/20MG 10ML UDC PO PRN ×2 (08:39→20:43)
[2022-05-20] MEDS: ACETAMINOPHEN 325 MG TAB PO PRN ×2 (12:08→21:00)
--- NOTE | 2022-05-20 17:23 | Hospitalist Progress Note ---
Date of Service May 20, 2022 Assessment & Plan (1) Sepsis: Plan: Per Dr. Cedeno's notes with addendum: Severe sepsis SIRS plus ARF on CKD Possible sources : COVID-19 illness/complicated bronchitis Possible complicated UTI --Remains on room air Chest x-ray: No pneumonia --Due to patient's age, underlying comorbid conditions, remdesivir offered- benefits and risks explained, patient understanding and agreeable To monitor renal function and LFTs daily Check sputum culture Incentive spirometry Continue doxycycline UTI? Urine culture negative so far Blood cultures negative so far Continue cefepime, DC tomorrow if negative cultures MS flareup ruled out --Neurologist consulted chronic diastolic heart failure (EF 55 to 60%, TTE 2017) -- Euvolemic HTN, stable hx CVA Prediabetes, hemoglobin A1c of 5.9 last 2020 polymyalgia rheumatica currently off steroid Rx DVT prophylaxis. Heparin subcu DNR Disposition PT OT evaluation plan of care discussed with patient in detail and at length all questions answered She is understanding, agreeable, comfortable with the plan of care Admission and Anticipated Discharge Date Admission Date: May 19, 2022 Subjective Follow-up for COVID-19 infection, acute bronchitis, possible UTI, etc. Seen sitting up in bed, watching TV, comfortable, not in distress Very pleasant States she continues to feel improved overall Still has cough, with white sputum No shortness of breath Denies chest pain, leg pain Denies urinary symptoms, abdominal pain, nausea vomiting No other symptoms Review of Systems Review of Systems: all noted and negative except for above Physical Exam Physical Exam: General- oriented x 3, not in distress, speaks in sentences with no effort or accessory muscle use Eyes- anicteric Neck- no JVD Lungs- clear breath sounds bilaterally, no rales/wheezes Heart- normal rate, regular rhythm; no murmurs Abdomen- normal bowel sounds, nondistended, soft, nontender Extremities- no pretibial edema, no calf tenderness Neuro- alert, oriented x 3; no gross focal neurologic deficits Skin- warm & dry Results & Data Results & Data ([facility]) Vital Signs (Past 12 Hours) Vital Signs Temp Pulse Resp BP BP Pulse Ox O2 Del Method 05/20/22 15:23 37.1 C 70 18 104/60 93 Room Air 05/20/22 09:00 36.8 C 98 H 18 130/80 96 Room Air 05/20/22 10:31 Room Air all noted and reviewed including below
[2022-05-20] MEDS ORDERED: REMDESIVIR 200 MG in SODIUM CHLORIDE 0.9% 210 ML IV STA (17:29)
[2022-05-20] MEDS: METOPROLOL TARTRATE 50 MG TAB PO SCH (20:42)
[2022-05-21] MEDS: CEFEPIME 2,000 MG in SYRINGE 0 ML IV SCH (05:51)
[2022-05-21] MEDS: HEPARIN SOD 5,000 UNIT/0.5 ML VIAL SQ SCH ×3 (05:51→19:33)
[2022-05-21] MEDS: LEVOTHYROXINE SODIUM 75 MCG TABLET PO SCH (05:51)
[2022-05-21 08:01] LABS: Albumin Globulin Ratio 1.2 (0.9-2); Albumin Level 3.6 gm/dl (3.4-5.0); BUN Creatinine Ratio 19.5 (10-20); Bilirubin,Total 0.4 mg/dl (0.2-1.0); Calcium 9.3 mg/dl (8.5-10.1); Creatinine Clr Calc Pharmacy 39.6 ml/min; Est GFR (African American) 53.2 ml/min; Est GFR (Non-African American) 45.9 ml/min; Potassium 3.7 mmol/L (3.5-5.1); Total Protein 6.6 gm/dl (6.0-8.3)
--- NOTE | 2022-05-21 09:28 | XRay Report ---
XR chest 1V portable HISTORY: 81 years-old Female ff up covid infection acute shortness breath with cough and weakness COMPARISON: Chest radiograph 05/18/2022 TECHNIQUE: Portable AP view of the chest FINDINGS: Cardiomediastinal and hilar silhouettes are within normal limits. Atherosclerosis of the aorta. No pn eumothorax, pleural effusion, airspace consolidation or overt pulmonary edema. Degenerative changes o f the shoulders and spine. Postoperative changes of the cervical spine. IMPRESSION: No acute process. ACT 112: Negative or not required by law. The above report was generated using voice recognition software. It may contain grammatical, syntax o r spelling errors. Electronically signed by: Renzo De La Rosa M.D. 05/21/2022 9:27 AM
[2022-05-21] MEDS: DICLOFENAC SOD 1% GEL 100 GM TUBE EXT SCH ×2 (09:42→19:35)
[2022-05-21] MEDS: ONDANSETRON INJ 2 MG/ML 2 ML VIAL IV PRN (09:44)
[2022-05-21] MEDS: DOXYCYCLINE HYCLATE 100 MG CAP PO SCH (09:45)
[2022-05-21] MEDS: guaiFENesin/DEXTROM SYRUP 200MG/20MG 10ML UDC PO PRN ×2 (09:45→19:35)
[2022-05-21] MEDS: METOPROLOL TARTRATE 100 MG TAB PO SCH (09:45)
[2022-05-21] MEDS: PANTOprazole 40 MG TAB PO SCH (09:45)
[2022-05-21] MEDS: FOLIC ACID 1 MG TAB PO SCH (09:45)
[2022-05-21] MEDS: amLODIPine BESYLATE 5 MG TAB PO SCH (09:46)
[2022-05-21] MEDS: ACETAMINOPHEN 325 MG TAB PO PRN ×2 (09:49→19:34)
--- NOTE | 2022-05-21 14:24 | Hospitalist Progress Note ---
Date of Service May 21, 2022 Assessment & Plan (1) Sepsis: Plan: Per Dr. Cedeno's notes with addendum: Severe sepsis SIRS plus ARF on CKD Possible sources : COVID-19 illness/complicated bronchitis Possible complicated UTI --Remains on room air Chest x-ray: No pneumonia --Due to patient's age, underlying comorbid conditions, remdesivir offered- benefits and risks explained, patient understanding and agreeable To monitor renal function and LFTs daily Check sputum culture Incentive spirometry Continue doxycycline 05/21 Repeat chest x-ray: No pneumonia Continue remdesivir day #2 Monitor renal function and LFTs DC doxycycline as this could be causing GI symptoms, nausea DC cefepime, urine culture negative Continue to monitor closely UTI? Urine culture negative so far Blood cultures negative so far DC cefepime MS flareup ruled out --Neurologist consulted chronic diastolic heart failure (EF 55 to 60%, TTE 2016) -- Euvolemic HTN, stable hx CVA Prediabetes, hemoglobin A1c of 5.9 last 2020 polymyalgia rheumatica currently off steroid Rx DVT prophylaxis. Heparin subcu DNR Disposition PT OT evaluation plan of care discussed with patient in detail and at length all questions answered She is understanding, agreeable, comfortable with the plan of care Admission and Anticipated Discharge Date Admission Date: May 19, 2022 Subjective Follow-up for COVID-19 infection, etc. Seen sitting up in bed, comfortable, watching TV Having nausea this morning, given Zofran with relief Appetite is poor Still has some cough with clear phlegm No chest pain, shortness of breath, palpitations, dizziness, leg pain No BM since last Saturday No other symptoms Review of Systems Review of Systems: all noted and negative except for above Physical Exam Physical Exam: General- oriented x 3, not in distress, speaks in sentences with no effort or accessory muscle use Eyes- anicteric Neck- no JVD Lungs- clear BS BL Heart- normal rate, regular rhythm; no murmurs Abdomen- normal bowel sounds, nondistended, soft, nontender Extremities- no pretibial edema, no calf tenderness Neuro- alert, oriented x 3; no gross focal neurologic deficits Skin- warm & dry Results & Data Results & Data ([facility]) Vital Signs (Past 12 Hours) Vital Signs Temp Pulse Resp BP Pulse Ox O2 Del Method 05/21/22 12:46 36.6 C 67 18 112/68 92 Room Air 05/21/22 10:35 Room Air all noted and reviewed including below
[2022-05-21] MEDS: DOCUSATE SODIUM 100 MG CAP PO SCH ×2 (15:26→19:35)
[2022-05-21] MEDS: METOPROLOL TARTRATE 50 MG TAB PO SCH (19:33)
[2022-05-21] MEDS ORDERED: REMDESIVIR 100 MG in SODIUM CHLORIDE 0.9% 230 ML IV SCH (20:00)
[2022-05-22] MEDS: HEPARIN SOD 5,000 UNIT/0.5 ML VIAL SQ SCH ×3 (06:03→21:25)
[2022-05-22] MEDS: LEVOTHYROXINE SODIUM 75 MCG TABLET PO SCH (06:04)
[2022-05-22] MEDS: DOCUSATE SODIUM 100 MG CAP PO SCH ×2 (08:33→21:27)
[2022-05-22] MEDS: DICLOFENAC SOD 1% GEL 100 GM TUBE EXT SCH ×2 (08:33→21:25)
[2022-05-22] MEDS: ACETAMINOPHEN 325 MG TAB PO PRN (08:33)
[2022-05-22] MEDS: METOPROLOL TARTRATE 100 MG TAB PO SCH (08:34)
[2022-05-22] MEDS: FOLIC ACID 1 MG TAB PO SCH (08:34)
[2022-05-22] MEDS: PANTOprazole 40 MG TAB PO SCH (08:34)
[2022-05-22] MEDS: amLODIPine BESYLATE 5 MG TAB PO SCH (08:34)
[2022-05-22 08:38] LABS: Albumin Level 3.5 gm/dl (3.4-5.0); BUN Creatinine Ratio 22.7 (10-20); Bilirubin,Total 0.4 mg/dl (0.2-1.0); Calcium 9.5 mg/dl (8.5-10.1); Creatinine Clr Calc Pharmacy 40.7 ml/min; Est GFR (African American) 54.9 ml/min; Est GFR (Non-African American) 47.4 ml/min; Globulin 3.4 gm/dl (2.5-4.0); Total Protein 6.9 gm/dl (6.0-8.3)
[2022-05-22] MEDS: ONDANSETRON INJ 2 MG/ML 2 ML VIAL IV PRN (12:22)
[2022-05-22] MEDS ORDERED: levoFLOXacin 750 MG TAB PO SCH (16:00)
[2022-05-22] MEDS: guaiFENesin 600 MG TABCR PO SCH (21:26)
[2022-05-22] MEDS: METOPROLOL TARTRATE 50 MG TAB PO SCH (21:28)
[2022-05-23] MEDS: HEPARIN SOD 5,000 UNIT/0.5 ML VIAL SQ SCH ×3 (06:03→21:31)
[2022-05-23] MEDS: LEVOTHYROXINE SODIUM 75 MCG TABLET PO SCH (06:03)
[2022-05-23 08:14] LABS: Albumin Globulin Ratio 1.3 (0.9-2); Albumin Level 3.5 gm/dl (3.4-5.0); BUN Creatinine Ratio 22.9 (10-20); Bilirubin,Total 0.5 mg/dl (0.2-1.0); Calcium 9.6 mg/dl (8.5-10.1); Creatinine Clr Calc Pharmacy 41.1 ml/min; Est GFR (African American) 55.5 ml/min; Est GFR (Non-African American) 47.9 ml/min; Globulin 2.8 gm/dl (2.5-4.0); Potassium 4.3 mmol/L (3.5-5.1); Total Protein 6.3 gm/dl (6.0-8.3)
[2022-05-23] MEDS: FOLIC ACID 1 MG TAB PO SCH (09:03)
[2022-05-23] MEDS: DOCUSATE SODIUM 100 MG CAP PO SCH ×2 (09:03→21:31)
[2022-05-23] MEDS: PANTOprazole 40 MG TAB PO SCH (09:03)
[2022-05-23] MEDS: guaiFENesin 600 MG TABCR PO SCH ×2 (09:03→21:32)
[2022-05-23] MEDS: amLODIPine BESYLATE 5 MG TAB PO SCH (09:03)
[2022-05-23] MEDS: METOPROLOL TARTRATE 100 MG TAB PO SCH (09:04)
[2022-05-23] MEDS: DICLOFENAC SOD 1% GEL 100 GM TUBE EXT SCH ×2 (09:04→21:36)
--- NOTE | 2022-05-23 15:26 | Hospitalist Progress Note ---
Date of Service May 23, 2022 Assessment & Plan (1) Sepsis: Plan: Per Dr. Cedeno's notes with addendum: Severe sepsis SIRS plus ARF on CKD Possible sources : COVID-19 illness/complicated bronchitis Possible complicated UTI --Remains on room air Chest x-ray: No pneumonia --Due to patient's age, underlying comorbid conditions, remdesivir offered- benefits and risks explained, patient understanding and agreeable To monitor renal function and LFTs daily Check sputum culture Incentive spirometry Continue doxycycline 05/23 Repeat chest x-ray: No pneumonia Continue remdesivir day #3 renal function and LFTs okay DC doxycycline as this could be causing GI symptoms, nausea Transition to Levaquin DC cefepime, urine culture negative Continue to monitor closely UTI? Urine culture negative so far Blood cultures negative so far DC cefepime MS flareup ruled out --Neurologist consulted chronic diastolic heart failure (EF 55 to 60%, TTE 2016) -- Euvolemic HTN, stable hx CVA Prediabetes, hemoglobin A1c of 5.9 last 2020 polymyalgia rheumatica currently off steroid Rx DVT prophylaxis. Heparin subcu DNR Disposition Anticipate discharge to home tomorrow plan of care discussed with patient in detail and at length all questions answered She is understanding, agreeable, comfortable with the plan of care Admission and Anticipated Discharge Date Admission Date: May 19, 2022 Subjective Follow-up for COVID-19 infection, etc. Seen resting up in bed, comfortable, not in distress, in good spirits States she feels improved today compared to yesterday Still has some dry cough, no shortness of breath, no chest pain, no leg pain Nausea resolved, appetite is also improving No other symptoms Review of Systems Review of Systems: all noted and negative except for above Physical Exam Physical Exam: General- oriented x 3, not in distress, speaks in sentences with no effort or accessory muscle use Eyes- anicteric Neck- no JVD Lungs- clear BS bilaterally, no rales/wheezes Heart- normal rate, regular rhythm; no murmurs Abdomen- normal bowel sounds, nondistended, soft, no tenderness Extremities- no pretibial edema, no calf tenderness Neuro- alert, oriented x 3; no gross focal neurologic deficits Skin- warm & dry Results & Data Results & Data ([facility]) Vital Signs (Past 12 Hours) Vital Signs Temp Pulse Resp BP BP Pulse Ox O2 Del Method 05/23/22 12:02 36.9 C 73 20 121/71 94 Room Air 05/23/22 09:59 Room Air 05/23/22 07:59 36.5 C 73 18 117/67 94 Room Air all noted and reviewed including below
[2022-05-23] MEDS ORDERED: REMDESIVIR 100 MG in SODIUM CHLORIDE 0.9% 230 ML IV SCH (20:00)
[2022-05-23] MEDS: METOPROLOL TARTRATE 50 MG TAB PO SCH (21:32)
[2022-05-24] MEDS: LEVOTHYROXINE SODIUM 75 MCG TABLET PO SCH (05:33)
[2022-05-24] MEDS: HEPARIN SOD 5,000 UNIT/0.5 ML VIAL SQ SCH (05:33)
[2022-05-24 07:41] LABS: Albumin Globulin Ratio 1.1 (0.9-2); Albumin Level 3.3 gm/dl (3.4-5.0); BUN Creatinine Ratio 26.6 (10-20); Bilirubin,Total 0.3 mg/dl (0.2-1.0); Calcium 9.2 mg/dl (8.5-10.1); Creatinine Clr Calc Pharmacy 41.1 ml/min; Est GFR (African American) 55.5 ml/min; Est GFR (Non-African American) 47.9 ml/min; Globulin 2.9 gm/dl (2.5-4.0); Total Protein 6.2 gm/dl (6.0-8.3)
[2022-05-24] MEDS: FOLIC ACID 1 MG TAB PO SCH (08:55)
[2022-05-24] MEDS: METOPROLOL TARTRATE 100 MG TAB PO SCH (08:55)
[2022-05-24] MEDS: PANTOprazole 40 MG TAB PO SCH (08:55)
[2022-05-24] MEDS: amLODIPine BESYLATE 5 MG TAB PO SCH (08:55)
[2022-05-24] MEDS: guaiFENesin 600 MG TABCR PO SCH (08:56)
[2022-05-24] MEDS: DOCUSATE SODIUM 100 MG CAP PO SCH (08:56)
[2022-05-24] MEDS: DICLOFENAC SOD 1% GEL 100 GM TUBE EXT SCH (08:57)
--- NOTE | 2022-05-24 15:56 | XRay Report ---
XR foot RT min 3V routine CLINICAL HISTORY: pain, s/p fall, r/o fracture TECHNIQUE: 3 views of the right foot were obtained. Comparison: None available at the time of this dictation. FINDINGS: No fractures are present. The joint spaces are well preserved. A few vascular calcifications are seen . IMPRESSION: No evidence of acute bony injury. ACT 112: Negative or not required by law. Electronically signed by: Al Jaquez M.D. 05/24/2022 3:54 PM
--- NOTE | 2022-05-24 16:08 | Hospitalist Progress Note ---
Date of Service May 24, 2022 Assessment & Plan (1) COVID-19: Plan: (1) Sepsis: Plan: Per Dr. Cedeno's notes with addendum: Severe sepsis SIRS plus ARF on CKD Possible sources : COVID-19 illness/complicated bronchitis Possible complicated UTI --Remains on room air Chest x-ray: No pneumonia --Due to patient's age, underlying comorbid conditions, remdesivir offered- benefits and risks explained, patient understanding and agreeable To monitor renal function and LFTs daily Check sputum culture Incentive spirometry Continue doxycycline 05/24 Repeat chest x-ray: No pneumonia Patient has received remdesivir x3 days renal function and LFTs okay DC doxycycline as this could be causing GI symptoms, nausea Transitioned to Levaquin Discharge to home today Finish Levaquin x3 more doses Encouraged to use incentive spirometry at home Follow-up with PCP in 1 week UTI ruled out Urine culture negative so far Blood cultures negative so far DC cefepime MS flareup ruled out --Neurologist consulted No leg weakness chronic diastolic heart failure (EF 55 to 60%, TTE 2016) -- Euvolemic HTN, stable hx CVA Prediabetes, hemoglobin A1c of 5.9 last 2020 polymyalgia rheumatica currently off steroid Rx DVT prophylaxis. Heparin subcu DNR Disposition Discharge to home Follow-up with PCP in 1 week Admission and Anticipated Discharge Date Admission Date: May 19, 2022 Subjective Follow-up for COVID-19 infection, etc. Seen resting in bed, sitting up watching TV States she feels fine overall Breathing is better, less cough No chest pain, no other symptoms States she is ready and ready for discharge Review of Systems Review of Systems: all noted and negative except for above Physical Exam Physical Exam: General- oriented x 3, not in distress, speaks in sentences with no effort or accessory muscle use Eyes- anicteric Neck- no JVD Lungs- clear breath sounds bilaterally, no rales/wheezes Heart- normal rate, regular rhythm; no murmurs Abdomen- normal bowel sounds, nondistended, soft, nontender Extremities- no pretibial edema, no calf tenderness Neuro- alert, oriented x 3; no gross focal neurologic deficits Skin- warm & dry Results & Data Results & Data ([facility]) Vital Signs (Past 12 Hours) Vital Signs Temp Pulse Pulse Resp BP BP Pulse Ox 05/24/22 10:06 36.6 C 95 H 78 19 134/73 121/71 95 05/24/22 09:13 05/24/22 08:15 36.6 C 78 19 134/73 95 05/24/22 04:22 O2 Del Method 05/24/22 10:06 05/24/22 09:13 Room Air 05/24/22 08:15 Room Air 05/24/22 04:22 Room Air all noted and reviewed including below
--- NOTE | 2022-05-24 16:11 | Discharge Summary ---
Discharge Summary Date of Service May 24, 2022 Notes For Next Care Provider Medication Changes From Visit Levaquin 750 mg every 2 days x 3 doses Admission HPI Per Admitting Provider History obtained from patient and records. Medical history significant for chronic diastolic heart failure (EF 55 to 60%, TTE 2017), HTN, CVA, multiple sclerosis, MGUS, CRI (baseline creatinine 1.2), prediabetes, polymyalgia rheumatica currently off steroid Rx, past tobacco abuse. Patient not feeling well the last 2 days. Junky cough symptoms without chest pain or shortness of breath. Denies abdominal pain, dysuria symptoms. Poor appetite. Bilateral leg weakness, difficulty in ambulation reminiscent of MS flareup. Patient has been off Avonex the last 18 months. Achy headache symptoms. Not sure about recent COVID-19 contacts as she had to go to a local [facility] clinic to get a mammogram a few weeks ago. Patient completed COVID-19 vaccination. Ceftriaxone administered at the ER for UTI. 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 Admission Exam Per Admitting Provider GENERAL: Comfortable, pleasant, obese, no respiratory distress SKIN: Normal color, warm HEENT: [place] palpebral conjunctivae, no ptosis, dry buccal mucosa NECK : Supple, short neck, no tenderness CHEST : CTA, no tenderness HEART : RRR, no obvious murmurs ABDOMEN: Some distention, nontender EXTREMITIES : Minimal LE swelling, no LE tenderness, no other conspicuous deformities noted NEUROLOGIC : Coherent, no facial asymmetry, MMTS BUE 4/5, BLE 3/5, gait and stance not assessed Principal Dx & Hospital Course #1 = Principal Diagnosis (1) COVID-19: Severe sepsis SIRS plus ARF on CKD Possible sources : COVID-19 illness/complicated bronchitis --Remained on room air Chest x-ray: No pneumonia --Due to patient's age, underlying comorbid conditions, remdesivir offered- benefits and risks explained, patient understanding and agreeable 05/24 Repeat chest x-ray: No pneumonia Patient has received remdesivir x3 days renal function and LFTs okay DC'd doxycycline as this could be causing GI symptoms, nausea Transitioned to Levaquin Discharge to home today Finish Levaquin x3 more doses Encouraged to use incentive spirometry at home Follow-up with PCP in 1 week UTI ruled out Urine culture negative so far Blood cultures negative so far DC cefepime MS flareup ruled out --Neurologist consulted No leg weakness chronic diastolic heart failure (EF 55 to 60%, TTE 2017) -- Euvolemic HTN, stable hx CVA Prediabetes, hemoglobin A1c of 5.9 last 2020 polymyalgia rheumatica currently off steroid Rx DVT prophylaxis. Heparin subcu DNR Disposition Discharge to home Follow-up with PCP in 1 week Discharge Exam General- oriented x 3, not in distress, speaks in sentences with no effort or accessory muscle use Eyes- anicteric Neck- no JVD Lungs- clear breath sounds bilaterally, no rales/wheezes Heart- normal rate, regular rhythm; no murmurs Abdomen- normal bowel sounds, nondistended, soft, nontender Extremities- no pretibial edema, no calf tenderness Neuro- alert, oriented x 3; no gross focal neurologic deficits Skin- warm & dry Updated Medication List Medication Instructions Recorded Confirmed Type albuterol sulfate 90 mcg/actuation 2 puffs inhalation Q6H PRN 05/27/19 05/18/22 History aerosol inhaler shortness of breath #1 g levothyroxine 75 mcg tablet 75 mcg PO DAILYBB #30 tabs 05/27/19 05/18/22 History omeprazole 40 mg capsule,delayed 40 mg PO QAM 05/27/19 05/18/22 History release spironolactone 25 mg tablet 12.5 mg PO QAM 05/27/19 05/18/22 History cyclobenzaprine 5 mg tablet 5 mg PO HS PRN Muscle Spasm 02/07/21 05/18/22 History furosemide 20 mg tablet (Lasix) 40 mg PO QAM 02/07/21 05/18/22 History losartan 25 mg tablet (Cozaar) 25 mg PO QAM 02/07/21 05/18/22 History metoprolol tartrate 100 mg tablet 100 mg PO QAM 02/07/21 05/18/22 History (Lopressor) amlodipine 5 mg tablet 5 mg PO DAILY 05/18/22 05/18/22 History dextromethorphan-guaifenesin 30 1 tab PO QAM 05/18/22 05/18/22 History mg-600 mg tablet extended [id number] hr (Mucinex DM) folic acid 1 mg tablet 1 mg PO DAILY 05/18/22 05/18/22 History furosemide 20 mg tablet 20 mg PO DAILY PRN SWELLING 05/18/22 05/18/22 History metoprolol tartrate 100 mg tablet 50 mg PO QPM 05/18/22 05/18/22 History (Lopressor) metronidazole 0.75 % topical gel 1 applic topical DIRECTED 05/18/22 05/18/22 History levofloxacin 750 mg tablet 750 mg PO Q48H #3 tabs 05/24/22 Rx Hospital Stay Data Consultations 05/18/22 22:51 ED Decision to Admit Stat 05/19/22 04:31 Consult Neurology Routine Diagnostic Imagining Performed CXR: COMPARISON: Chest radiograph 05/18/2022 TECHNIQUE: Portable AP view of the chest FINDINGS: Cardiomediastinal and hilar silhouettes are within normal limits. Atherosclerosis of the aorta. No pneumothorax, pleural effusion, airspace consolidation or overt pulmonary edema. Degenerative changes of the shoulders and spine. Postoperative changes of the cervical spine. IMPRESSION: No acute process. ACT 112: Negative or not required by law. The above report was generated using voice recognition software. It may contain grammatical, syntax or spelling errors. 05/18/22 21:34 MR brain MS wo con Stat COMPARISON STUDY: MRI of the brain dated 09/03/2006. TECHNIQUE: MRI of the brain was performed utilizing various T1 and T2-weighted sequences in the axial, sagittal, and coronal planes. IV contrast was not administered for this examination. The examination is performed using the multiple sclerosis protocol. FINDINGS: Brain parenchyma: There is age-related involutional change. Moderate to advanced patchy foci of T2 signal abnormality are seen throughout the subcortical and periventricular white matter. There is no hemorrhage or mass effect. There is no restricted diffusion typical for acute ischemia. Teresa-white matter differentiation is preserved. No extra-axial fluid collection is seen. The cerebellar tonsils are normal in configuration. Ventricles, sulci, and cisterns: Prominent secondary to involutional change. Pituitary and sella: Unremarkable. Intracranial vasculature: Normal flow voids are maintained at the skull base. Orbits: The bony orbits are grossly intact. Orbital contents are normal in appearance noting bilateral ocular lens implants. Sinuses and mastoids: There is trace mucosal thickening within the maxillary antra. The remaining paranasal sinuses and mastoid air cells are clear. Calvarium: Unremarkable. Cervical cord: Partially visualized cervical spinal cord is normal in morphology and signal intensity. IMPRESSION: 1. There is no hemorrhage, mass effect, or evidence of acute ischemia. 2. There are moderate to advanced patchy foci of signal abnormality seen throughout the subcortical and periventricular white matter. Some of this likely represents microangiopathic change. A superimposed demyelinating process is not excluded. White matter change has somewhat progressed as compared to 2007. ACT 112: Negative or not required by law. Pending Results Patient Have Any Pending Studies at Discharge: No Discharge Instructions Given to Patient (Per Discharging Provider) PLEASE REFER TO YOUR NEW MEDICATION LIST AND FOLLOW INSTRUCTIONS CAREFULLY. YOUR NEW MEDICATION: LEVAQUIN- antibiotic for acute bronchitis PLEASE CALL YOUR PRIMARY CARE PHYSICIAN OR RETURN TO THE ER IF WITH WORSENING OF SYMPTOMS, INCLUDING cough, fever/chills, shortness of breath, chest pain, leg pain/swelling, etc YOU STILL NEED TO ISOLATE FOR 5 MORE DAYS. FOLLOW UP WITH PRIMARY CARE PHYSICIAN in 1 week. Home Isolation COVID-19 Instructions The following information about Home Isolation is from the CDC Website: https://www.cdc.gov/coronavirus/2019-ncov/hcp/ukgbsvpb-wfighrg-pcsiaj.html Stay home except to get medical care People who are mildly ill with COVID-19 are able to isolate at home during their illness. You should restrict activities outside your home, except for getting medical care. Do not go to work, school, or public areas. Avoid using public transportation, ride-sharing, or taxis. Separate yourself from other people and animals in your home People: As much as possible, you should stay in a specific room and away from other people in your home. Also, you should use a separate bathroom, if available. Animals: You should restrict contact with pets and other animals while you are sick with COVID-19, just like you would around other people. Although there have not been reports of pets or other animals becoming sick with COVID-19, it is still recommended that people sick with COVID-19 limit contact with animals until more information is known about the virus. When possible, have another member of your household care for your animals while you are sick. If you are sick with COVID-19, avoid contact with your pet, including petting, snuggling, being kissed or licked, and sharing food. If you must care for your pet or be around animals while you are sick, wash your hands before and after you interact with pets and wear a face mask. Call ahead before visiting your doctor If you have a medical appointment, call the healthcare provider and tell them that you have or may have COVID-19. This will help the healthcare providers office take steps to keep other people from getting infected or exposed. Wear a face mask You should wear a face mask when you are around other people (e.g., sharing a room or vehicle) or pets and before you enter a healthcare providers office. If you are not able to wear a face mask (for example, because it causes trouble breathing), then people who live with you should not stay in the same room with you, or they should wear a face mask if they enter your room. Cover your coughs and sneezes Cover your mouth and nose with a tissue when you cough or sneeze. Throw used tissues in a lined trash can. Immediately wash your hands with soap and water for at least 20 seconds or, if soap and water are not available, clean your hands with an alcohol-based hand plasterer maintenance that contains at least 60% alcohol. Clean your hands often Wash your hands often with soap and water for at least 20 seconds, especially after blowing your nose, coughing, or sneezing; going to the bathroom; and before eating or preparing food. If soap and water are not readily available, use an alcohol-based hand plasterer maintenance with at least 60% alcohol, covering all surfaces of your hands and rubbing them together until they feel dry. Soap and water are the best option if hands are visibly dirty. Avoid touching your eyes, nose, and mouth with unwashed hands. Avoid sharing personal household items You should not share dishes, drinking glasses, cups, eating utensils, towels, or bedding with other people or pets in your home. After using these items, they should be washed thoroughly with soap and water. Clean all high-touch surfaces everyday High touch surfaces include counters, tabletops, doorknobs, bathroom fixtures, toilets, phones, keyboards, tablets, and bedside tables. Also, clean any surfaces that may have blood, stool, or body fluids on them. Use a household cleaning spray or wipe, according to the label instructions. Labels contain instructions for safe and effective use of the cleaning product including precautions you should take when applying the product, such as wearing gloves and making sure you have good ventilation during use of the product. Monitor your symptoms Seek prompt medical attention if your illness is worsening (e.g., difficulty breathing).Beforeseeking care, call your healthcare provider and tell them that you have, or are being evaluated for, COVID-19. Put on a face mask before you enter the facility. These steps will help the healthcare providers office to keep other people in the office or waiting room from getting infected or exposed. Ask your healthcare provider to call the local or state health department. Persons who are placed under active monitoring or facilitated self-monitoring should follow instructions provided by their local health department or occupational health professionals, as appropriate. When working with your local health department check their available hours. If you have a medical emergency and need to call 911, notify the dispatch personnel that you have, or are being evaluated for COVID-19. If possible, put on a face mask before emergency medical services arrive. Discontinuing home isolation Patients with confirmed COVID-19 should remain under home isolation precautions until the risk of secondary transmission to others is thought to be low. The decision to discontinue home isolation precautions should be made on a rpei-ti-lyca basis, in consultation with healthcare providers and state and local health departments. Total Time Total Time Spent Total Time Spent (In Minutes): >30 minutes
== END 2022-05-24 12:49 | disposition home or self-care (01) | DRG 871 ==
LOC: ED 20:28 → 2N 05-19 02:12 → SUATTDRO 05-19 02:12 → 2N 05-19 03:23

== ENCOUNTER 2022-06-10 09:35 | Inpatient (IN) ==
[2022-06-10] MEDS ORDERED: SODIUM CHLORIDE 0.9% 1000ML 1,000 ML IV STA (09:44)
--- NOTE | 2022-06-10 09:48 | Emergency Department Note ---
Impression & Plan Acute respiratory infection, PATY (acute kidney injury), Accelerated junctional rhythm, Acute dehydration, Complaints of total body pain ED Provider Note Name: LULÚ MILLER Age: 81 Sex: F Arrives Via: Ambulance Informant: Patient ED Provider: Ryan Grace MD Chief Complaint: Total body pain Impression: As per impressions above Medical Decision Makin-year-old female with a history of MS, CHF, sepsis, PATY, asthma, depression, GERD, hypertension, hypothyroidism arrives for evaluation of diffuse body aches and shortness of breath. She has a junky productive cough. She did recently get hospitalized for COVID and sepsis has been over the last few weeks gradually improving. Lungs today though are a bit on the junky side though no significant wheezing appreciated. She on arrival has a heart rate in the 120s and by EKG it appears to be some sort of accelerated junctional rhythm. She was she was given 1 L normal and this resolved relatively quickly. A repeat EKG is normal sinus rhythm. Initial troponin looks good. Other labs show mild elevation of white blood cell count. There is no clear other findings of infection besides the fact that her lung exam is consistent with some sort of respiratory infection. She was given empiric Rocephin Doxy, some IV Decadron as well as Tylenol. She notes she was starting to feel better and then started having palpitations and was noted to be tachycardic again unfortunately this was not captured as it resolved shortly thereafter. Given patient's age the unusual tacky arrhythmia, respiratory infection including her recent hospitalization for sepsis I do think it is reasonable bring her in. She has no hypoxia I think getting a CTA of the chest with her mild PATY would defer to hospital service. Prior Medical Record and Triage/Nursing Notes reviewed by Me Additional history obtained from chart Differentials:Infection, dehydration, metabolic abnormality, hypo/hyperglycemia, electrolyte disturbance, anemia, hypoxia, cardiac sources, intracerebral event, toxicologic, neurologic, as well as other pathologies. Vital Signs: reviewed and remarkable for tachycardia Interventions: nss bolus, Rocephin IV, Doxy p.o., Decadron IV Labs:Reviewed and remarkable for elevated white blood cell count Imaging:A chest x-ray no acute findings as per radiologist EKG:Per My Interpretation: Indication palpitations: Accelerated junctional rhythm at 120 bpm without ectopy nor ischemia appreciated. When compared to previous EKG on May 18, 2022 there are no P waves noted. Consults:Rhona driscollist service Plan: Disposition:Hospitalization. Condition: Good History of Present Illness:81-year-old female arrives for evaluation of body aches. Patient with 2 to 3 days worsening shortness of breath, cough, body aches. She denies any fevers. This morning she noted her heart rate was up. She feels very weak and tired. She states this is similar to previous MS flares as well as her previous sepsis episodes. She was hospitalized about 1 month ago for sepsis, UTI, COVID-19. She was also noted to have a flareup of MS about a year and a half ago which responded to steroids. Patient states that her cough has been getting worse and she is having productive cough. She denies any actual nausea, vomiting, fevers, chills, back pain, abdominal pain, headache, urinary burning, diarrhea and or other concerning signs or symptoms. She had no recent leg swelling or calf pain. She is not taking any medications for this. Any exertion makes worse. Rest makes better. EMS arrived to find her with an O2 sat 92% on room air and patient was tachycardic with heart rate of 120 and somewhat short of breath. She did get 2 L nasal cannula in route but she does feel makes her feel little bit better. ROS: See above HPI for pertinent positives & negatives. A total of 10 systems reviewed and were otherwise negative. Past Medical History:See Below Past Surgical History:See Below Family History:See Below Social History:See Below Home Medications:See Below Allergies:See Below Vitals:Blood Pressure: 110/60, Pulse 120, RR 18, T 37.4C, O2 96% on RA Physical Exam: GENERAL: Patient is tired appearing and in mild distress. Warm to touch EYES: No scleral icterus, unremarkable pupils. ENT: Mucous membranes moist, no nasal congestion. NECK: No masses appreciated, nomeningismus, trachea is midline. RESPIRATORY: No dyspnea. Clear to auscultation and equal bilaterally. No wheeze, no rhonchi. CARDIOVASCULAR: Tachy.No murmurs, rubs, gallops appreciated. GASTROINTESTINAL: Abdomen soft, non-tender, no peritonitis.Bowel sounds positive.No masses appreciated. BACK: No midline tenderness, no CVA tenderness EXTREMITIES: Normal motion all extremities, no cyanosis, no edema. NEUROLOGIC: Alert and oriented, no acute motor or sensory deficits, no focal weakness, cranial nerves grossly intact. SKIN: No rash, no jaundice, no diaphoresis. PSYCH: Appropriate though a bit anxious GCS: 15 ED Course: Times/Reassessments: Patient feels much better after initial fluid bolus. She was started to feel better from body ache standpoint and then noticed some increasing palpitations and feeling the symptoms were returning. Noted to be tachycardic on monitor however unable to capture on EKG as it resolved. 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 Beliefs That Will Affect Care: None marital status: / Current Living Situation: Alone Current Living Situation Comment: [place] How many Children do You have: 1 Feels Safe at Home: Yes Assistive Devices: Walker Allergies Allergies Allergy/AdvReac Type Severity Reaction Status Date / Time naproxen Allergy Severe GI Bleed Unverified 06/10/22 15:08 amoxicillin [From Augmentin] Allergy Unknown Unknown Verified 06/10/22 15:08 clavulanic acid Allergy Unknown Unknown Verified 06/10/22 15:08 [From Augmentin] morphine AdvReac Intermediate difficulty Unverified 06/10/22 15:08 breathing fluticasone AdvReac Mild hives Unverified 06/10/22 15:08 Home Meds Home Medications Medication Instructions Recorded Confirmed albuterol sulfate 90 mcg/actuation 2 puffs inhalation Q6H PRN 05/27/19 06/10/22 aerosol inhaler shortness of breath #1 g levothyroxine 75 mcg tablet 75 mcg PO DAILYBB #30 tabs 05/27/19 06/10/22 omeprazole 40 mg capsule,delayed 40 mg PO QAM 05/27/19 06/10/22 release spironolactone 25 mg tablet 12.5 mg PO QAM 05/27/19 06/10/22 cyclobenzaprine 5 mg tablet 5 mg PO HS PRN Muscle Spasm 02/07/21 06/10/22 furosemide 20 mg tablet (Lasix) 40 mg PO QAM 02/07/21 06/10/22 losartan 25 mg tablet (Cozaar) 25 mg PO QAM 02/07/21 06/10/22 metoprolol tartrate 100 mg tablet 100 mg PO QAM 02/07/21 06/10/22 (Lopressor) amlodipine 5 mg tablet 5 mg PO DAILY 05/18/22 06/10/22 dextromethorphan-guaifenesin 30 1 tab PO QAM 05/18/22 06/10/22 mg-600 mg tablet extended hr (Mucinex DM) folic acid 1 mg tablet 1 mg PO DAILY 05/18/22 06/10/22 metoprolol tartrate 100 mg tablet 50 mg PO QPM 05/18/22 06/10/22 (Lopressor) Results & Data (ED) Vital Signs Vital Signs - 24 hr 06/10/22 09:44 06/10/22 09:44 06/10/22 09:44 Temperature 37.4 C Temperature Source Oral Pulse Rate 118 H Pulse Rate [Right Finger] Pulse Rhythm Regular Pulse Rhythm [Right Finger] Pulse Strength Normal Pulse Strength [Right Finger] Respiratory Rate 22 Respiratory Effort / Characteristics Non-Labored Non-Labored Respiratory Depth Normal Respiratory Pattern Regular Blood Pressure 108/68 Blood Pressure [Right Arm] Blood Pressure Mean 81 Blood Pressure Mean [Right Arm] Blood Pressure Position Lying Blood Pressure Position [Right Arm] Pulse Oximetry 95 Oxygen Delivery Method Room Air Room Air Sepsis Recent Fever Within 48 Hours No Sepsis New/Unexplained Change in Mental Status No Sepsis Action Taken by Nursing MD Previously Notified 06/10/22 09:44 06/10/22 10:33 06/10/22 11:00 Temperature Temperature Source Pulse Rate Pulse Rate [Right Finger] 80 Pulse Rhythm Pulse Rhythm [Right Finger] Regular Pulse Strength Pulse Strength [Right Finger] Normal Respiratory Rate 21 Respiratory Effort / Characteristics Non-Labored Respiratory Depth Normal Respiratory Pattern Regular Blood Pressure Blood Pressure [Right Arm] 121/64 Blood Pressure Mean Blood Pressure Mean [Right Arm] 83 Blood Pressure Position Blood Pressure Position [Right Arm] Lying Pulse Oximetry 97 Oxygen Delivery Method Room Air Room Air Room Air Sepsis Recent Fever Within 48 Hours Sepsis New/Unexplained Change in Mental Status Sepsis Action Taken by Nursing 06/10/22 13:00 06/10/22 14:40 06/10/22 14:00 Temperature Temperature Source Pulse Rate Pulse Rate [Right Finger] 75 77 Pulse Rhythm Pulse Rhythm [Right Finger] Pulse Strength Pulse Strength [Right Finger] Respiratory Rate 17 15 Respiratory Effort / Characteristics Non-Labored Non-Labored Spontaneous Respiratory Depth Normal Respiratory Pattern Blood Pressure Blood Pressure [Right Arm] 105/64 137/71 Blood Pressure Mean Blood Pressure Mean [Right Arm] 77 93 Blood Pressure Position Blood Pressure Position [Right Arm] Pulse Oximetry 95 96 96 Oxygen Delivery Method Room Air Room Air Room Air Sepsis Recent Fever Within 48 Hours Sepsis New/Unexplained Change in Mental Status Sepsis Action Taken by Nursing 06/10/22 15:00 06/10/22 17:00 Temperature Temperature Source Pulse Rate Pulse Rate [Right Finger] 87 89 Pulse Rhythm Pulse Rhythm [Right Finger] Pulse Strength Pulse Strength [Right Finger] Respiratory Rate 16 18 Respiratory Effort / Characteristics Non-Labored Spontaneous Accessory Muscle Use Non-Labored Spontaneous Respiratory Depth Normal Normal Respiratory Pattern Blood Pressure Blood Pressure [Right Arm] 119/65 130/69 Blood Pressure Mean Blood Pressure Mean [Right Arm] 83 89 Blood Pressure Position Blood Pressure Position [Right Arm] Pulse Oximetry 97 96 Oxygen Delivery Method Room Air Room Air Sepsis Recent Fever Within 48 Hours Sepsis New/Unexplained Change in Mental Status Sepsis Action Taken by Nursing Laboratory Data Result diagrams: 06/10/22 10:03 06/10/22 10:45 Lab Results 06/10/22 06/10/22 06/10/22 Range/Units 10:03 10:03 10:03 WBC 16.62 H (4.8-10.8) K/ul RBC 4.20 (3.93-5.22) M/uL Hgb 12.5 (12.0-16.0) g/dl Hct 37.1 (34.1-44.9) % MCV 88.3 (80.0-100.0) fL MCH 29.8 (25.0-34.0) pg MCHC 33.7 (32.0-36.0) g/dL RDW Std Deviation 43.2 (36.4-46.3) fL RDW Coeff of Bita 13.4 (11.5-14.5) % Plt Count 343 (130-400) K/uL MPV 10.9 (9.4-12.3) fL Immature Gran % (Auto) 0.8 % Neut % (Auto) 80.5 % Lymph % (Auto) 7.1 % [place] % (Auto) 11.2 % Eos % (Auto) 0.2 % Baso % (Auto) 0.2 % Neut # (Auto) 13.37 H (1.4-6.5) K/uL Lymph # (Auto) 1.18 L (1.2-3.4) K/uL [place] # (Auto) 1.86 H (0.24-0.82) K/uL Eos # (Auto) 0.04 (0-0.50) K/uL Baso # (Auto) 0.04 (0-0.2) K/uL Immature Gran # (Auto) 0.13 H (0.00-0.02) K/uL Sodium 137 (136-145) mmol/L Potassium TNP Chloride 102 (98-107) mmol/L Carbon Dioxide 27 (21-32) mmol/L Anion Gap 8 (3-11) BUN 26 H (6-23) mg/dl Creatinine 1.27 H (0.6-1.2) mg/dl Est Cr Clr Drug Dosing 35.5 ml/min Est GFR ( Amer) 46.2 ml/min Est GFR (Non-Af Amer) 39.8 ml/min BUN/Creatinine Ratio 20.5 H (10-20) Glucose 97 (70-99(Fasting)) mg/dl Lactate 1.5 (0.4-2.0) mmol/L Calcium 9.4 (8.5-10.1) mg/dl Magnesium 1.7 (1.7-2.4) mg/dl Total Bilirubin 1.0 (0.2-1.0) mg/dl Direct Bilirubin TNP AST TNP ALT 16 (7-52) U/L Alkaline Phosphatase 104 (34-104) U/L Troponin I High Sens 7.3 (0-14) pg/ml Total Protein 7.3 (6.0-8.3) gm/dl Albumin 3.4 (3.4-5.0) gm/dl Procalcitonin Urine Color Urine Appearance (Clear) Urine pH (4.5-7.5) Ur Specific [place] (1.000-1.030) Urine Protein (Negative) Urine Glucose (UA) (Negative) Urine Ketones (Negative) Urine Blood (Negative) Urine Nitrite (Negative) Urine Bilirubin (Negative) Urine Urobilinogen (Negative) Ur Leukocyte Esterase (Negative) SARS-CoV-2 (PCR) (Negative) Influenza Type A (PCR) (Neg) Influenza Type B (PCR) (Neg) RSV (RT-PCR) (Neg) 06/10/22 06/10/22 06/10/22 Range/Units 10:03 10:03 10:45 WBC (4.8-10.8) K/ul RBC (3.93-5.22) M/uL Hgb (12.0-16.0) g/dl Hct (34.1-44.9) % MCV (80.0-100.0) fL MCH (25.0-34.0) pg MCHC (32.0-36.0) g/dL RDW Std Deviation (36.4-46.3) fL RDW Coeff of Bita (11.5-14.5) % Plt Count (130-400) K/uL MPV (9.4-12.3) fL Immature Gran % (Auto) % Neut % (Auto) % Lymph % (Auto) % [place] % (Auto) % Eos % (Auto) % Baso % (Auto) % Neut # (Auto) (1.4-6.5) K/uL Lymph # (Auto) (1.2-3.4) K/uL [place] # (Auto) (0.24-0.82) K/uL Eos # (Auto) (0-0.50) K/uL Baso # (Auto) (0-0.2) K/uL Immature Gran # (Auto) (0.00-0.02) K/uL Sodium (136-145) mmol/L Potassium 4.1 Chloride (98-107) mmol/L Carbon Dioxide (21-32) mmol/L Anion Gap (3-11) BUN (6-23) mg/dl Creatinine (0.6-1.2) mg/dl Est Cr Clr Drug Dosing ml/min Est GFR ( Amer) ml/min Est GFR (Non-Af Amer) ml/min BUN/Creatinine Ratio (10-20) Glucose (70-99(Fasting)) mg/dl Lactate (0.4-2.0) mmol/L Calcium (8.5-10.1) mg/dl Magnesium (1.7-2.4) mg/dl Total Bilirubin (0.2-1.0) mg/dl Direct Bilirubin 0.4 H AST 18 ALT (7-52) U/L Alkaline Phosphatase (34-104) U/L Troponin I High Sens (0-14) pg/ml Total Protein (6.0-8.3) gm/dl Albumin (3.4-5.0) gm/dl Procalcitonin Cancelled 0.42 Urine Color Urine Appearance (Clear) Urine pH (4.5-7.5) Ur Specific [place] (1.000-1.030) Urine Protein (Negative) Urine Glucose (UA) (Negative) Urine Ketones (Negative) Urine Blood (Negative) Urine Nitrite (Negative) Urine Bilirubin (Negative) Urine Urobilinogen (Negative) Ur Leukocyte Esterase (Negative) SARS-CoV-2 (PCR) (Negative) Influenza Type A (PCR) (Neg) Influenza Type B (PCR) (Neg) RSV (RT-PCR) (Neg) 06/10/22 06/10/22 06/10/22 Range/Units 15:19 16:32 Unknown WBC (4.8-10.8) K/ul RBC (3.93-5.22) M/uL Hgb (12.0-16.0) g/dl Hct (34.1-44.9) % MCV (80.0-100.0) fL MCH (25.0-34.0) pg MCHC (32.0-36.0) g/dL RDW Std Deviation (36.4-46.3) fL RDW Coeff of Bita (11.5-14.5) % Plt Count (130-400) K/uL MPV (9.4-12.3) fL Immature Gran % (Auto) % Neut % (Auto) % Lymph % (Auto) % [place] % (Auto) % Eos % (Auto) % Baso % (Auto) % Neut # (Auto) (1.4-6.5) K/uL Lymph # (Auto) (1.2-3.4) K/uL [place] # (Auto) (0.24-0.82) K/uL Eos # (Auto) (0-0.50) K/uL Baso # (Auto) (0-0.2) K/uL Immature Gran # (Auto) (0.00-0.02) K/uL Sodium (136-145) mmol/L Potassium Chloride (98-107) mmol/L Carbon Dioxide (21-32) mmol/L Anion Gap (3-11) BUN (6-23) mg/dl Creatinine (0.6-1.2) mg/dl Est Cr Clr Drug Dosing ml/min Est GFR ( Amer) ml/min Est GFR (Non-Af Amer) ml/min BUN/Creatinine Ratio (10-20) Glucose (70-99(Fasting)) mg/dl Lactate 1.0 (0.4-2.0) mmol/L Calcium (8.5-10.1) mg/dl Magnesium (1.7-2.4) mg/dl Total Bilirubin (0.2-1.0) mg/dl Direct Bilirubin AST ALT (7-52) U/L Alkaline Phosphatase (34-104) U/L Troponin I High Sens (0-14) pg/ml Total Protein (6.0-8.3) gm/dl Albumin (3.4-5.0) gm/dl Procalcitonin Urine Color Yellow Urine Appearance Clear (Clear) Urine pH 6.5 (4.5-7.5) Ur Specific [place] 1.009 (1.000-1.030) Urine Protein Negative (Negative) Urine Glucose (UA) Negative (Negative) Urine Ketones Negative (Negative) Urine Blood Negative (Negative) Urine Nitrite Negative (Negative) Urine Bilirubin Negative (Negative) Urine Urobilinogen Negative (Negative) Ur Leukocyte Esterase Negative (Negative) SARS-CoV-2 (PCR) POSITIVE A* (Negative) Influenza Type A (PCR) Negative (Neg) Influenza Type B (PCR) Negative (Neg) RSV (RT-PCR) Negative (Neg) Administered Medications Discontinued Medications Acetaminophen (Acetaminophen 500 Mg Tab) 1,000 mg PO NOW STA Stop: 06/10/22 11:51 Last Admin: 06/10/22 12:00 Dose: 1,000 mg Documented By: AP Dexamethasone Sodium Phosphate (DexamethasonePf 10 Mg/Ml Vial) 10 mg IV NOW ONE Stop: 06/10/22 11:51 Last Admin: 06/10/22 12:01 Dose: 10 mg Documented By: AP Doxycycline Hyclate (Doxycycline Hyclate 100 Mg Cap) 100 mg PO NOW STA Stop: 06/10/22 11:51 Last Admin: 06/10/22 12:01 Dose: 100 mg Documented By: AP Sodium Chloride (Nss 1000ml) 1,000 mls @ 999 mls/hr IV .Q1H1M STA Stop: 06/10/22 10:44 Last Infusion: 06/10/22 11:28 Dose: 0 mls/hr Documented By: Admin: 06/10/22 10:15 Dose: 999 mls/hr Documented By: AP Ceftriaxone Sodium (Rocephin) 1,000 mg in 50 mls @ 100 mls/hr IV NOW STA Stop: 06/10/22 12:19 Last Infusion: 06/10/22 12:55 Dose: 0 mls/hr Documented By: Admin: 06/10/22 12:21 Dose: 100 mls/hr Documented By: AP Sodium Chloride (Nss 1000ml) 500 mls @ 999 mls/hr IV .Q31M ONE Stop: 06/10/22 14:09 Last Infusion: 06/10/22 14:32 Dose: 0 mls/hr Documented By: Admin: 06/10/22 13:58 Dose: 999 mls/hr Documented By: AP Imaging Data Radiologist's Impression: Chest X-Ray 06/10/22 09:44 XR chest 1V portable HISTORY: 81 years-old Female Sepsis acute sepsis COMPARISON: Chest radiograph 05/21/2022 TECHNIQUE: Portable AP view of the chest FINDINGS: Cardiomediastinal and hilar silhouettes are within normal limits. There is no pneumothorax, pleural effusion, airspace consolidation or overt pulmonary edema. Degenerative changes of the shoulders and spine. Postoperative changes of the cervical spine. IMPRESSION: No acute process. ACT 112: Negative or not required by law. The above report was generated using voice recognition software. It may contain grammatical, syntax or spelling errors. Electronically signed by: Renzo De La Rosa M.D. 06/10/2022 10:03 AM Discharge Plan Visit Data Chief Complaint: Shortness of Breath/Dyspnea Stated Complaint: SOB, TACHYCARDIA ED Provider: Ryan Grace Discharge Problem: Acute respiratory infection, PATY (acute kidney injury), Accelerated junctional rhythm, Acute dehydration, Complaints of total body pain Forms Stand Alone Forms: [facility] Prescriptions Prescriptions: No Action levothyroxine 75 mcg tablet 75 mcg PO DAILYBB Qty: 30 omeprazole 40 mg capsule,delayed release(DR/EC) 40 mg PO QAM Label Comments: 40 mg PO TAke 1 capsule 30 min before breakfast and dinner; Rx Instructions: 40 mg PO TAke 1 capsule 30 min before breakfast and dinner; albuterol sulfate 90 mcg/actuation HFA aerosol inhaler 2 puffs inhalation Q6H PRN (Reason: shortness of breath) Qty: 1 spironolactone 25 mg tablet 12.5 mg PO QAM Label Comments: 25 mg PO Take 1/2 tablet daily; Rx Instructions: 25 mg PO Take 1/2 tablet daily; metoprolol tartrate [Lopressor] 100 mg tablet 100 mg PO QAM Rx Instructions: Take 1 tablet in the morning and 1/2 tablet in the afternoon. losartan [Cozaar] 25 mg tablet 25 mg PO QAM furosemide [Lasix] 20 mg tablet 40 mg PO QAM cyclobenzaprine 5 mg tablet 5 mg PO HS PRN (Reason: Muscle Spasm) metoprolol tartrate [Lopressor] 100 mg tablet 50 mg PO QPM amlodipine 5 mg tablet 5 mg PO DAILY folic acid 1 mg tablet 1 mg PO DAILY Mucinex DM 30-600 mg Tablet Extended Release 12 Hr 1 tab PO QAM Referrals Referrals: Valerie Tan MD [Primary Care Provider] -
--- NOTE | 2022-06-10 10:05 | XRay Report ---
XR chest 1V portable HISTORY: 81 years-old Female Sepsis acute sepsis COMPARISON: Chest radiograph 05/21/2022 TECHNIQUE: Portable AP view of the chest FINDINGS: Cardiomediastinal and hilar silhouettes are within normal limits. There is no pneumothorax, pleural e ffusion, airspace consolidation or overt pulmonary edema. Degenerative changes of the shoulders and s pine. Postoperative changes of the cervical spine. IMPRESSION: No acute process. ACT 112: Negative or not required by law. The above report was generated using voice recognition software. It may contain grammatical, syntax o r spelling errors. Electronically signed by: Renzo De La Rosa M.D. 06/10/2022 10:03 AM
[2022-06-10 10:15] LABS: Basophils # (auto) 0.04 K/uL (0-0.2); Basophils % (auto) 0.2 %; Eosinophils # (auto) 0.04 K/uL (0-0.50); Eosinophils % (auto) 0.2 %; Hematocrit (blood only) 37.1 % (34.1-44.9); Hemoglobin 12.5 g/dl (12.0-16.0); Immature Granulocytes # (auto) 0.13 K/uL (0.00-0.02); Immature Granulocytes % (auto) 0.8 %; Lymphocytes # (auto) 1.18 K/uL (1.2-3.4); Lymphocytes % (auto) 7.1 %; Mean Corpuscular Hemoglobin 29.8 pg (25.0-34.0); Mean Corpuscular Hgb Conc 33.7 g/dL (32.0-36.0); Mean Corpuscular Volume 88.3 fL (80.0-100.0); Mean Platelet Volume 10.9 fL (9.4-12.3); Monocytes # (auto) 1.86 K/uL (0.24-0.82); Monocytes % (auto) 11.2 %; Neutrophils # (auto) 13.37 K/uL (1.4-6.5); Neutrophils % (auto) 80.5 %; Platelet Count 343 K/uL (130-400); RDW Coefficient of Variation 13.4 % (11.5-14.5); RDW Standard Deviation 43.2 fL (36.4-46.3); White Blood Count 16.62 K/ul (4.8-10.8)
[2022-06-10 10:39] LABS: Alanine Aminotransferase 16 U/L (7-52); Albumin Level 3.4 gm/dl (3.4-5.0); Alkaline Phosphatase 104 U/L (34-104); Anion Gap 8 (3-11); BUN Creatinine Ratio 20.5 (10-20); Blood Urea Nitrogen 26 mg/dl (6-23); Calcium 9.4 mg/dl (8.5-10.1); Carbon Dioxide 27 mmol/L (21-32); Chloride 102 mmol/L (98-107); Creatinine Clr Calc Pharmacy 35.5 ml/min; Est GFR (African American) 46.2 ml/min; Est GFR (Non-African American) 39.8 ml/min; Glucose 97 mg/dl (70-99(Fasting)); Magnesium 1.7 mg/dl (1.7-2.4); Sodium 137 mmol/L (136-145); Total Protein 7.3 gm/dl (6.0-8.3)
[2022-06-10 10:43] LABS: Troponin I High Sensitivity 7.3 pg/ml (0-14)
[2022-06-10 11:00] LABS: Appearance Urine Clear (Clear); Bilirubin Urine Negative (Negative); Blood Urine Negative (Negative); Color Urine Yellow; Glucose Urine UA Negative (Negative); Ketones Urine Negative (Negative); Leukocyte Esterase Urine Negative (Negative); Nitrite Urine Negative (Negative); Protein Urine Negative (Negative); Specific Gravity Urine 1.009 (1.000-1.030); Urobilinogen Urine Negative (Negative); pH Urine 6.5 (4.5-7.5)
[2022-06-10 11:15] LABS: Potassium 4.1 mmol/L (3.5-5.1)
[2022-06-10 11:29] LABS: Bilirubin Direct 0.4 mg/dl (0-0.2)
[2022-06-10] MEDS ORDERED: dexAMETHasone**PF** 10 MG/ML VIAL IV ONE (11:50)
[2022-06-10] MEDS ORDERED: cefTRIAXone SODIUM 1,000 MG/50 ML BAG IV STA (11:50)
[2022-06-10] MEDS ORDERED: DOXYCYCLINE HYCLATE 100 MG CAP PO STA (11:50)
[2022-06-10] MEDS ORDERED: ACETAMINOPHEN 500 MG TAB PO STA (11:50)
[2022-06-10] MEDS ORDERED: SODIUM CHLORIDE 0.9% 1000ML 500 ML IV ONE (13:39)
--- NOTE | 2022-06-10 13:49 | Electrocardiogram Report ---
Test Reason : Blood Pressure : / mmHG Vent. Rate : 119 BPM Atrial Rate : 113 BPM P-R Int : 000 ms QRS Dur : 086 ms QT Int : 340 ms P-R-T Axes : 000 050 031 degrees QTc Int : 478 ms Accelerated Junctional rhythm vs. sinus tachycardia with first degree A-V block Abnormal ECG When compared with ECG of 18-MAY-2022 20:43, Possible Junctional rhythm has replaced Sinus rhythm HR has increased 36 bpm Confirmed by Ishmael Parmar ([id number]) on 06/10/2022 1:49:21 PM Referred By: REFERRED SELF Confirmed By:Ishmael Parmar
--- NOTE | 2022-06-10 13:55 | Electrocardiogram Report ---
Test Reason : Blood Pressure : / mmHG Vent. Rate : 072 BPM Atrial Rate : 072 BPM P-R Int : 192 ms QRS Dur : 074 ms QT Int : 374 ms P-R-T Axes : 050 057 057 degrees QTc Int : 409 ms Normal sinus rhythm Low voltage QRS Borderline ECG When compared with ECG of 10-JUN-2022 09:49, Sinus rhythm has replaced Junctional rhythm Vent. rate has decreased BY 47 BPM Confirmed by Ishmael Parmar ([id number]) on 06/10/2022 1:55:07 PM Referred By: REFERRED SELF Confirmed By:Ishmael Parmar
--- NOTE | 2022-06-10 13:58 | History & Physical Report ---
Date of Service June 10, 2022 Assessment & Plan (1) Accelerated junctional rhythm: (2) Upper respiratory infection: (3) Hypothyroidism: (4) HTN (hypertension): (5) Multiple sclerosis: (6) GERD (gastroesophageal reflux disease): (7) Depressive disorder: (8) Asthma: (9) MGUS (monoclonal gammopathy of unknown significance): (10) Diastolic CHF: (11) Cough: Plan 81-year-old female with fatigue and malaise. Recent COVID admission 05 19-05 24. Past medical history including diastolic CHF, hypertension, multiple sclerosis, MGUS, hypothyroidism. Leukocytosis with negative chest x-ray. Patient euvolemic on exam. Accelerated junctional rhythm noted in ED. Obtaining echo and cards consult. Patient is DNR/DNI. Cough Upper Respiratory Infection: Productive cough yellow/white sputum Leukocytosis WBC 16.62 Sputum culture ordered Steroids administered in ED; hold further steroids until culture returns Lactic acid pending; Pro-Jak negative Was on Mucinex outpatient we will continue; ISB Chest x-ray negative; will repeat in a.m. Trend CBC/BMP in AM Accelerated Junctional Rhythm: Diastolic HFpEF: HTN: Pt noted heart palpitations at home. Pt fluctuating between normal sinus rhythm and accelerated junctional rhythm with flattened T waves. Patient appears euvolemic on exam Takes Metoprolol, Amlodipine, Losartan; continue and monitor creatinine Takes Lasix and Spironolactone; continue and monitor Creatinine 1.27; baseline 1.09-1.13 Magnesium 1.7; trend in a.m. Troponin negative; monitor for any symptoms warranting further trend Echo ordered Cardiology consult; BMP in AM Hypothyroidism: Takes levothyroxine; continue TSH on 12/2021: 0.37 Trend TSH as an outpatient Asthma: Allergic rhinitis: Takes Fluticasone Has Albuterol for breakthrough; continue Multiple Sclerosis: MGUS: Follows with Dr. Mclean for MS Has started following with oncology for MGUS Takes Flexeril and Tylenol. Uses diclofenac gel; continue GERD: Continue omeprazole Disposition: PCP: Dr. Tan Code: DNR/DNI VTE Prophylaxis: Heparin SQ POC: damián Hairston and POA: [phone] I personally was able to review all current laboratory work and diagnostic images obtained in the ED. Additionally, I was able to review the patients past medication reconciliation and history with direct visualization in the patients chart. This case was discussed and collaborated with Dr. Childress. History of Present Illness Chief Complaint: body aches and chills Primary Care Provider: Valerie Tan MD Ms. Ash is an 81 year old female who presented to the [facility] via EMS for overall generalized malaise and fatigue. Patient was discharged from OR on 05/24 for sepsis/COVID-19. She was being seen by home health since has been discharged and was noted to have an elevated HR. Over the last week, she just feels like she has no appetite, has been tolerating protein shakes, weakness, fatigue and has been staying in her PJ's because she didn't have any energy. She was taking Tylenol around the clock which did help. She reports that her knees have been uncomfortable and she feels this is related to her Multiple Sclerosis. She reports that lately she has noticed exertional shortness of breath that has been occurring over the past month. She was a tobacco smoker but quit in 1997 and does not drink alcohol or use recreational drugs. She lives in a one story and has an open floor plan. Pt follows with Dr. Lr for Cardiology. In the ER on the heart monitor she was noted to be in accelerated junctional rhythm with a heart rate in the 90s. When I was in the room with her she would go between normal sinus rhythm to junctional with flat T waves and an irregular rhythm. Additional past medical history includes asthma, diastolic congestive heart failure, hypertension, multiple sclerosis, MGUS, hypothyroidism, PMR, history of smoking, prediabetes on no medications, chronic renal insufficiency with a baseline creatinine of 1.2. Currently the patient denies WHITE, dizziness, SOB, chest pain, palpitations, orthopnea, V/D currently but she does report chest palpitations, nausea. Patients mother had open heart surgery and her father of a massive AMI and her brother and sister have heart 'issues' as well. Patient is sitting upright in her hospital bed in no apparent distress. She is on RA 96%. Patient received a dose of IV steroids and antibiotics in the ED. We will obtain a sputum culture and continue IV antibiotics empirically for the next 48 hours until further diagnostics return. Routine echocardiogram ordered due to accelerated junctional rhythm along with a cardiology consult. Chest x-ray is negative and patient does appear euvolemic on exam. Patient will be admitted under hospitalist service for further evaluation and management. Allergies Allergy/AdvReac Type Severity Reaction Status Date / Time naproxen Allergy Severe GI Bleed Unverified 06/10/22 15:08 amoxicillin [From Augmentin] Allergy Unknown Unknown Verified 06/10/22 15:08 clavulanic acid Allergy Unknown Unknown Verified 06/10/22 15:08 [From Augmentin] morphine AdvReac Intermediate difficulty Unverified 06/10/22 15:08 breathing fluticasone AdvReac Mild hives Unverified 06/10/22 15:08 Home Medications Medication Instructions Recorded Confirmed Type albuterol sulfate 90 mcg/actuation 2 puffs inhalation Q6H PRN 05/27/19 06/10/22 History aerosol inhaler shortness of breath #1 g levothyroxine 75 mcg tablet 75 mcg PO DAILYBB #30 tabs 05/27/19 06/10/22 History omeprazole 40 mg capsule,delayed 40 mg PO QAM 05/27/19 06/10/22 History release spironolactone 25 mg tablet 12.5 mg PO QAM 05/27/19 06/10/22 History cyclobenzaprine 5 mg tablet 5 mg PO HS PRN Muscle Spasm 02/07/21 06/10/22 History furosemide 20 mg tablet (Lasix) 40 mg PO QAM 02/07/21 06/10/22 History losartan 25 mg tablet (Cozaar) 25 mg PO QAM 02/07/21 06/10/22 History metoprolol tartrate 100 mg tablet 100 mg PO QAM 02/07/21 06/10/22 History (Lopressor) amlodipine 5 mg tablet 5 mg PO DAILY 05/18/22 06/10/22 History dextromethorphan-guaifenesin 30 1 tab PO QAM 05/18/22 06/10/22 History mg-600 mg tablet extended [id number] hr (Mucinex DM) folic acid 1 mg tablet 1 mg PO DAILY 05/18/22 06/10/22 History metoprolol tartrate 100 mg tablet 50 mg PO QPM 05/18/22 06/10/22 History (Lopressor) Past Med/Surg History Medical History (Updated 06/10/22 @ 15:40 by ROBERTA Welch) Accelerated junctional rhythm Asthma Cough Cough Depressive disorder Diastolic CHF GERD (gastroesophageal reflux disease) HTN (hypertension) Hypothyroidism MGUS (monoclonal gammopathy of unknown significance) Multiple sclerosis Upper respiratory infection Surgical History No pertinent past surgical history Social History Smoking Status: Former smoker Second Hand Exposure: No; Hx Alcohol Use: No Hx Substance Use: No Preferred Language: Telugu Milk Bottler Required: No Beliefs That Will Affect Care: None marital status: / Current Living Situation: Alone Current Living Situation Comment: Lives alone in [place] How many Children do You have: 1 Feels Safe at Home: Yes Assistive Devices: Walker Review of Systems Review of Systems: Neuro: (-) Falls, trauma, slurred speech HEENT: (-) WHITE, dizziness, dysphagia, visual or auditory changes CV: (-) CP, palpitations, swelling Resp: (+) SOB GI: (+) appetite changes, N/V/D, bowel changes : (-) urinary changes Skin: (-) rashes Psych: (-) anxiety, depression Physical Exam Physical Exam: Neuro: AAOx4, PERRLA, no aphagia, memory changes, CNII-XII grossly intact HEENT: head normocephalic, moist mucus membranes CV: S1/S2, (-) M/G/R, (-) edema, cap refill < 3 seconds Resp: Lungs CTA in all chinchilla. On RA GI: Abdomen S/NT/ND, Ax4 bowel sounds, (-) CVA tenderness Musculoskeletal: 5/5 B/L UE strength, 5/5 B/L LE strength. No gait disturbance Skin: (-) rashes , (-) erythema. Psych: euthymic mood Results & Data Results & Data ([facility]) Vital Signs (Past 12 Hours) Vital Signs Temp Pulse Pulse Resp BP BP Pulse Ox 06/10/22 13:00 75 17 105/64 95 06/10/22 11:00 80 21 121/64 97 06/10/22 10:33 06/10/22 09:44 06/10/22 09:44 06/10/22 09:44 37.4 C 118 H 22 108/68 95 O2 Del Method 06/10/22 13:00 Room Air 10/16/22 11:00 Room Air 06/10/22 10:33 Room Air 06/10/22 09:44 Room Air 06/10/22 09:44 Room Air 06/10/22 09:44 Room Air Laboratory Results Short CBC 06/10/22 Range/Units 10:03 WBC 16.62 H (4.8-10.8) K/ul Hgb 12.5 (12.0-16.0) g/dl Hct 37.1 (34.1-44.9) % Plt Count 343 (130-400) K/uL BMP 06/10/22 06/10/22 10:03 10:45 Sodium 137 Potassium TNP 4.1 Chloride 102 Carbon Dioxide 27 BUN 26 H Creatinine 1.27 H Glucose 97 Calcium 9.4 Liver Function 06/10/22 06/10/22 Range/Units 10:03 10:45 Total Bilirubin 1.0 (0.2-1.0) mg/dl Direct Bilirubin TNP 0.4 H AST TNP 18 ALT 16 (7-52) U/L Alkaline Phosphatase 104 (34-104) U/L Albumin 3.4 (3.4-5.0) gm/dl Urine 06/10/22 Range/Units Unknown Urine Color Yellow Urine Appearance Clear (Clear) Urine pH 6.5 (4.5-7.5) Ur Specific [place] 1.009 (1.000-1.030) Urine Protein Negative (Negative) Urine Glucose (UA) Negative (Negative) Diagnostic Findings Chest X-Ray 06/10/22 09:44 XR chest 1V portable HISTORY: 81 years-old Female Sepsis acute sepsis COMPARISON: Chest radiograph 05/21/2022 TECHNIQUE: Portable AP view of the chest FINDINGS: Cardiomediastinal and hilar silhouettes are within normal limits. There is no pneumothorax, pleural effusion, airspace consolidation or overt pulmonary edema. Degenerative changes of the shoulders and spine. Postoperative changes of the cervical spine. IMPRESSION: No acute process. ACT 112: Negative or not required by law. The above report was generated using voice recognition software. It may contain grammatical, syntax or spelling errors. Electronically signed by: Renzo De La Rosa M.D. 06/10/2022 10:03 AM ECG Additional Comments: Vent. Rate : 072 BPM Atrial Rate : 072 BPM P-R Int : 192 ms QRS Dur : 074 ms QT Int : 374 ms P-R-T Axes : 050 057 057 degrees QTc Int : 409 ms Normal sinus rhythm When compared with ECG of 10-JUN-2022 09:49, Sinus rhythm has replaced Junctional rhythm Vent. rate has decreased BY 47 BPM Code Status & VTE Plan Code Status DNR/DNI in the event of cardiac or respiratory arrest VTE Prophylaxis Plan VTE Prophylaxis will be ordered: Yes Supervising Physician Co-Signing Physician Notes Patient seen and examined independently. Agree with above note by Melanie GRANADOS. Patient reports persistent cough and generalized weakness since her discharge on 05/24/2022. She denies any fever, chills or shortness of breath. She also reports elevated heart rate when visiting nurse came to check on her. She reports intermittent palpitations; denies any chest pain. On examination: She is AOx3, comfortable Chestbilateral vesicular breath sound no added sound CVSS1-S2 no murmur Abdomensoft nontender Extremitiesno edema Neurologicalno focal deficit Labs are remarkable for leukocytosis. Negative Pro-Jak. Her creatinine is at baseline Chest x-ray unremarkable for any infiltrates Assessment/plan Post viral cough: Low suspicion for pneumonia; she does report cough with sputum and has leukocytosis. Will obtain respiratory viral panel and put her on empiric ceftriaxone for now. Monitor respiratory status. SVT-telemetry shows accelerated junctional rhythm; converted to sinus spontaneously. initially EKG confirms the same. High sensitive troponin negative. TSH obtained last admission normal. Continue home metoprolol monitor on telemetry, obtain echo and routine cardiology consult. Other home medication resumed
[2022-06-10] MEDS ORDERED: ACETAMINOPHEN 325 MG TAB PO PRN (14:01)
[2022-06-10] MEDS ORDERED: MAGNESIUM HYDROXIDE SUSP 30 ML UDC PO PRN (14:01)
[2022-06-10] MEDS ORDERED: POLYETHYLENE (MIRALAX) 17 GM PACK PO PRN (14:01)
[2022-06-10] MEDS ORDERED: ONDANSETRON INJ 2 MG/ML 2 ML VIAL IV PRN (14:01)
[2022-06-10] MEDS ORDERED: ALUMINUM/MAGNESIUM SUSP 30 ML UDC PO PRN (14:01)
[2022-06-10 16:06] LABS: Influenza A virus by PCR Negative (Neg); Influenza B virus by PCR Negative (Neg); RSV by PCR Negative (Neg)
[2022-06-10 17:18] LABS: SARS CoV2 RNA(COVID-19) InHosp POSITIVE (Negative)
[2022-06-10] MEDS ORDERED: ALBUTEROL HFA 8 GM INHALER INH PRN (18:51)
[2022-06-10] MEDS ORDERED: CYCLOBENZAPRINE HCL 5 MG TAB PO PRN (18:51)
[2022-06-10] MEDS ORDERED: guaiFENesin/DEXTROM SYRUP 200MG/20MG 10ML UDC PO PRN (19:02)
[2022-06-10] MEDS ORDERED: INFLUENZA VACCINE HIGH DOSE PF 65+ 0.7 ML SYR IM ONE (20:02)
[2022-06-10] MEDS ORDERED: METOPROLOL TARTRATE 50 MG TAB PO SCH (21:00)
[2022-06-10] MEDS: HEPARIN SOD 5,000 UNIT/0.5 ML VIAL SQ SCH (22:14)
[2022-06-10] MEDS: guaiFENesin/DEXTROM SYRUP 200MG/20MG 10ML UDC PO SCH (22:15)
[2022-06-10 23:27] LABS: Adenovirus PCR Not Detected (NotDetected); Bordetella parapertussis PCR Not Detected (NotDetected); Bordetella pertussis PCR Not Detected (NotDetected); Chlamydia pneumoniae PCR Not Detected (NotDetected); Coronavirus 229E PCR Not Detected (NotDetected); Coronavirus CoV-2 (COVID19)PCR Not Detected (NotDetected); Coronavirus HKU1 PCR Not Detected (NotDetected); Coronavirus NL63 PCR Not Detected (NotDetected); Coronavirus OC43PCR Not Detected (NotDetected); Human Metapneumovirus PCR Not Detected (NotDetected); Influenza A PCR Not Detected (NotDetected); Influenza B PCR Not Detected (NotDetected); Mycoplasma pneumoniae PCR Not Detected (NotDetected); Parainfluenza Virus 1 PCR Not Detected (NotDetected); Parainfluenza Virus 2 PCR Not Detected (NotDetected); Parainfluenza Virus 3 PCR Not Detected (NotDetected); Parainfluenza Virus 4 PCR Not Detected (NotDetected); Respiratory Syncytial VirusPCR Not Detected (NotDetected); Rhinovirus/Enterovirus PCR Not Detected (NotDetected)
[2022-06-11 06:20] LABS: Hematocrit (blood only) 34.3 % (34.1-44.9); Hemoglobin 11.4 g/dl (12.0-16.0); Mean Corpuscular Hemoglobin 29.2 pg (25.0-34.0); Mean Corpuscular Hgb Conc 33.2 g/dL (32.0-36.0); Mean Corpuscular Volume 87.7 fL (80.0-100.0); Mean Platelet Volume 11.1 fL (9.4-12.3); Platelet Count 338 K/uL (130-400); RDW Coefficient of Variation 13.3 % (11.5-14.5); RDW Standard Deviation 42.7 fL (36.4-46.3); Red Blood Count 3.91 M/uL (3.93-5.22); White Blood Count 13.07 K/ul (4.8-10.8)
[2022-06-11] MEDS ORDERED: LEVOTHYROXINE SODIUM 75 MCG TABLET PO SCH (06:30)
[2022-06-11 06:38] LABS: BUN Creatinine Ratio 26.3 (10-20); Calcium 9.2 mg/dl (8.5-10.1); Est GFR (African American) 65.6 ml/min; Est GFR (Non-African American) 56.6 ml/min; Magnesium 1.7 mg/dl (1.7-2.4); Phosphorus 2.4 mg/dl (2.5-4.9); Potassium 4.3 mmol/L (3.5-5.1)
[2022-06-11] MEDS: HEPARIN SOD 5,000 UNIT/0.5 ML VIAL SQ SCH (07:32)
--- NOTE | 2022-06-11 08:15 | Electrocardiogram Report ---
Test Reason : Blood Pressure : / mmHG Vent. Rate : 091 BPM Atrial Rate : 091 BPM P-R Int : 204 ms QRS Dur : 084 ms QT Int : 362 ms P-R-T Axes : 073 064 057 degrees QTc Int : 445 ms Normal sinus rhythm Normal ECG When compared with ECG of 10-JUN-2022 13:38, No significant change was found Confirmed by Ishmael Parmar ([id number]) on 06/11/2022 8:15:24 AM Referred By: REFERRED SELF Confirmed By:Ishmael Parmar
[2022-06-11] MEDS: guaiFENesin/DEXTROM SYRUP 200MG/20MG 10ML UDC PO SCH (08:59)
[2022-06-11] MEDS ORDERED: PANTOprazole 40 MG TAB PO SCH (09:00)
[2022-06-11] MEDS ORDERED: FUROSEMIDE 40 MG TAB PO SCH (09:00)
[2022-06-11] MEDS ORDERED: METOPROLOL TARTRATE 100 MG TAB PO SCH (09:00)
[2022-06-11] MEDS ORDERED: SPIRONOLACTONE 12.5 MG TAB PO SCH (09:00)
[2022-06-11] MEDS ORDERED: amLODIPine BESYLATE 5 MG TAB PO SCH (09:00)
[2022-06-11] MEDS ORDERED: LOSARTAN POTASSIUM 25 MG TAB PO SCH (09:00)
[2022-06-11] MEDS ORDERED: FOLIC ACID 1 MG TAB PO SCH (09:00)
--- NOTE | 2022-06-11 09:43 | XRay Report ---
XR chest 1V portable HISTORY: post-operative coughing and wheezing COMPARISON: Chest 06/10/2022. FINDINGS: No pneumothorax. No pleural effusions. There are low lung volumes with a few bibasilar line ar densities. This is similar to the prior study and favor subsegmental atelectasis or scarring. Othe rwise, no new focal lung consolidations to suggest a pneumonia. No evidence for pulmonary edema. Cerv ical fusion hardware is partially visualized. The heart remains top normal in size. IMPRESSION: No significant change compared to the prior study. No acute process. ACT 112: Negative or not required by law. Electronically signed by: Adria Ortega M.D. 06/11/2022 9:42 AM
[2022-06-11] MEDS ORDERED: cefTRIAXone SODIUM 2,000 MG in DEXTROSE 5% 50 ML IV SCH (12:00)
--- NOTE | 2022-06-11 14:33 | Cardiology Consultation ---
Date of Consultation June 11, 2022 Assessment & Plan (1) Accelerated junctional rhythm: -Patient with findings of an asymptomatic Celerity junctional rhythm. Her pulse oximetry has been normal, without hypoxia. She denies chest discomfort or subjective shortness of breath. With supportive care including administration of IV fluids, and her home metoprolol dose, normal sinus rhythm now noted. Stable findings on EKG. No additional cardiac testing felt to be indicated at this time. Continue prior to hospital treatment with metoprolol tartrate 100 mg daily in the morning, 50 mg at bedtime. Losartan 25 mg daily. Stable for discharge from a cardiology perspective. History of Present Illness Attending Physician: Anuj Childress MD History of Present Illness Sheri Ash is an 81 year old female seen in cardiology consultation per the request of Dr Martinez and ROBERTA Ivey for the evaluation of transient accelerated junctional rhythm. The patient had recently been admitted to the [facility] from 05/19/2022 until 05/24/2022 having presented with several days of worsening cold- like symptoms and generalized illness including generalized extremity weakness. She was diagnosed with sepsis and was found to be COVID-19 positive. There is initial concern for urinary tract infection, but it was felt that this was not the case. She received treatment and included remdesivir and levofloxacin. She was seen by neurology during that stay for a suspected multiple sclerosis flare. She presented to the emergency room overnight last night with recurrent complaint of diffuse body aches and generalized shortness of breath. An ongoing cough was observed. Her COVID-19 test was persistently positive. Upon arrival to the emergency room she is noted to have a narrow complex tachycardia with regular RR interval 120 bpm. EKG performed at the time consistent with an accelerated junctional rhythm. After receiving 1 L of normal saline the ta chycardia resolved in sinus rhythm noted on repeat EKG. At the time my assessment the patient was feeling better. She notes no subjective cardiac complaints. Including no palpitations at the time of arrival or since. Past Medical History Multiple sclerosis Diastolic dysfunction Hypertension Monoclonal gammopathy of uncertain significance Hypothyroidism Allergies Allergy/AdvReac Type Severity Reaction Status Date / Time naproxen Allergy Severe GI Bleed Unverified 06/10/22 15:08 amoxicillin [From Augmentin] Allergy Unknown Unknown Verified 06/10/22 15:08 clavulanic acid Allergy Unknown Unknown Verified 06/10/22 15:08 [From Augmentin] morphine AdvReac Intermediate difficulty Unverified 06/10/22 15:08 breathing fluticasone AdvReac Mild hives Unverified 06/10/22 15:08 Home Medications Medication Instructions Recorded Confirmed Type albuterol sulfate 90 mcg/actuation 2 puffs inhalation Q6H PRN 05/27/19 06/10/22 History aerosol inhaler shortness of breath #1 g levothyroxine 75 mcg tablet 75 mcg PO DAILYBB #30 tabs 05/27/19 06/10/22 History omeprazole 40 mg capsule,delayed 40 mg PO QAM 05/27/19 06/10/22 History release spironolactone 25 mg tablet 12.5 mg PO QAM 05/27/19 06/10/22 History cyclobenzaprine 5 mg tablet 5 mg PO HS PRN Muscle Spasm 02/07/21 06/10/22 History furosemide 20 mg tablet (Lasix) 40 mg PO QAM 02/07/21 06/10/22 History losartan 25 mg tablet (Cozaar) 25 mg PO QAM 02/07/21 06/10/22 History metoprolol tartrate 100 mg tablet 100 mg PO QAM 02/07/21 06/10/22 History (Lopressor) amlodipine 5 mg tablet 5 mg PO DAILY 05/18/22 06/10/22 History dextromethorphan-guaifenesin 30 1 tab PO QAM 05/18/22 06/10/22 History mg-600 mg tablet extended [id number] hr (Mucinex DM) folic acid 1 mg tablet 1 mg PO DAILY 05/18/22 06/10/22 History metoprolol tartrate 100 mg tablet 50 mg PO QPM 05/18/22 06/10/22 History (Lopressor) cefdinir 300 mg capsule 300 mg PO BID 4 days #8 caps 06/11/22 Rx Patient History Medical History Accelerated junctional rhythm Asthma Cough Cough Depressive disorder Diastolic CHF GERD (gastroesophageal reflux disease) HTN (hypertension) Hypothyroidism MGUS (monoclonal gammopathy of unknown significance) Multiple sclerosis Upper respiratory infection Surgical History No pertinent past surgical history Social History Smoking Status: Former smoker Smoking End Date: 1993; Second Hand Exposure: No; Do You Dip or Chew Tobacco: No; Hx Alcohol Use: No Hx Substance Use: No Preferred Language: Bahraini Management Analyst Required: No Beliefs That Will Affect Care: None marital status: / Current Living Situation: Alone Current Living Situation Comment: Lives alone in [place] How many Children do You have: 1 Other Information That Helps Us Care for You: No Feels Safe at Home: Yes Safety Concerns: Feels Safe At This Time Assistive Devices: Walker Assistive Devices Comment: Has walker but doesn't use Review of Systems Review of Systems: All systems reviewed & are unremarkable except as noted in HPI & below Physical Exam Physical Exam: Temp Pulse Resp BP Pulse Ox O2 Del Method 36.7 C 82 20 97/75 L 97 06/11/22 11:45 06/11/22 11:45 06/11/22 11:45 06/11/22 11:45 06/11/22 11:45 06/11/22 11:45 Constitutional: WD/WN, vitals as above Respiratory: normal respiratory effort, lungs clear to auscultation Cardiovascular: RRR, no murmur, no edema Gastrointestinal (Abdomen): normal bowel sounds, soft, nontender, no hepatosplenomegaly Neurologic: PERRL, EOMI, accommodation nl, no face palsy, no dysarthria Results & Data ([facility]) Vital Signs (Past 12 Hours) Vital Signs Temp Pulse Pulse Resp BP BP Pulse Ox 06/11/22 11:45 36.7 C 82 20 97/75 L 97 06/11/22 07:33 88 06/11/22 06:23 36.7 C 91 H 20 117/71 94 06/11/22 03:22 36.8 C 79 18 125/74 94 O2 Del Method 06/11/22 11:45 Room Air 06/11/22 07:33 06/11/22 06:23 Room Air 06/11/22 03:22 Room Air Laboratory Results CBC 06/11/22 Range/Units 05:53 WBC 13.07 H (4.8-10.8) K/ul RBC 3.91 L (3.93-5.22) M/uL Hgb 11.4 L (12.0-16.0) g/dl Hct 34.3 (34.1-44.9) % Plt Count 338 (130-400) K/uL Comprehensive Metabolic Panel 06/11/22 Range/Units 05:53 Sodium 137 (136-145) mmol/L Potassium 4.3 (3.5-5.1) mmol/L Chloride 104 (98-107) mmol/L Carbon Dioxide 26 (21-32) mmol/L BUN 25 H (6-23) mg/dl Creatinine 0.95 D (0.6-1.2) mg/dl Glucose 106 H (70-99(Fasting)) mg/dl Calcium 9.2 (8.5-10.1) mg/dl Intake and Output 06/10/22 06/11/22 06/11/22 22:59 06:59 14:59 Intake Total 300 / 1850 630 / 630 Balance 300 / 1850 630 / 630 Intake: IV 70 / 70 [id number] SODIUM 2,000 mg In 70 / 70 Dextrose 5% 50 ml @ 100 mls/hr IV Q24H [facility] Rx#:[id number] Oral 300 / 300 560 / 560 Other: Weight 78.925 kg Weight Measurement Method Standing Scale Diagnostic Findings EKG performed 06/10/2022 at 9:49 AM, and reviewed independently reveals an accelerated junctional rhythm at 119 bpm. Compared to the previous dated 05/18/2022, junctional rhythm replaced sinus rhythm in the heart rate had increased by 36 bpm. EKG 06/10/2022, 1338: Normal sinus rhythm 72 bpm. Compared to the previous, etc. junctional rhythm has resolved. EKG 06/11/2022: Normal sinus rhythm [address] segments. Transthoracic echocardiogram performed today 06/11/2022, interpreted independently by the undersigned: Mild concentric left ventricular hypertrophy is present No regional wall motion abnormalities LVEF 60 - 65%. Mild aortic valve sclerosis without stenosis. Grade 1 diastolic dysfunction present.
--- NOTE | 2022-06-11 15:35 | Discharge Summary ---
Date of Service June 11, 2022 Admission HPI Per Admitting Provider Ms. Ash is an 81 year old female who presented to the [facility] via EMS for overall generalized malaise and fatigue. Patient was discharged from CT on 05/24 for sepsis/COVID-19. She was being seen by home health since has been discharged and was noted to have an elevated HR. Over the last week, she just feels like she has no appetite, has been tolerating protein shakes, weakness, fatigue and has been staying in her PJ's because she didn't have any energy. She was taking Tylenol around the clock which did help. She reports that her knees have been uncomfortable and she feels this is related to her Multiple Sclerosis. She reports that lately she has noticed exertional shortness of breath that has been occurring over the past month. She was a tobacco smoker but quit in 1997 and does not drink alcohol or use recreational drugs. She lives in a one story and has an open floor plan. Pt follows with Dr. Lr for Cardiology. In the ER on the heart monitor she was noted to be in accelerated junctional rhythm with a heart rate in the 90s. When I was in the room with her she would go between normal sinus rhythm to junctional with flat T waves and an irregular rhythm. Additional past medical history includes asthma, diastolic congestive heart failure, hypertension, multiple sclerosis, MGUS, hypothyroidism, PMR, history of smoking, prediabetes on no medications, chronic renal insufficiency with a baseline creatinine of 1.2. Currently the patient denies WHITE, dizziness, SOB, chest pain, palpitations, orthopnea, V/D currently but she does report chest palpitations, nausea. Patients mother had open heart surgery and her father of a massive AMI and her brother and sister have heart 'issues' as well. Patient is sitting upright in her hospital bed in no apparent distress. She is on RA 96%. Patient received a dose of IV steroids and antibiotics in the ED. We will obtain a sputum culture and continue IV antibiotics empirically for the next 48 hours until further diagnostics return. Routine echocardiogram ordered due to accelerated junctional rhythm along with a cardiology consult. Chest x-ray is negative and patient does appear euvolemic on exam. Patient will be admitted under hospitalist service for further evaluation and management. Admission Exam Per Admitting Provider Physical Exam: Neuro: AAOx4, PERRLA, no aphagia, memory changes, CNII-XII grossly intact HEENT: head normocephalic, moist mucus membranes CV: S1/S2, (-) M/G/R, (-) edema, cap refill < 3 seconds Resp: Lungs CTA in all chinchlila. On RA GI: Abdomen S/NT/ND, Ax4 bowel sounds, (-) CVA tenderness Musculoskeletal: 5/5 B/L UE strength, 5/5 B/L LE strength. No gait disturbance Skin: (-) rashes , (-) erythema. Psych: euthymic mood Principal Diagnosis Post viral cough Supraventricular tachycardia (accelerated junctional rhythm) Discharge Exam Constitutional: WD/WN, vitals as above, NAD, sitting up in bed, pleasant, conversing easily Respiratory: normal respiratory effort, lungs clear to auscultation, no wheeze, rales, rhonchi. Normal insp/exp effort, no accessory muscle use Cardiovascular: RRR, no murmur, no edema Vessels: no JVD or carotid bruit Chest: normal inspection of chest Abdomen: normal bowel sounds, soft, nontender, no hepatosplenomegaly Musculoskeletal: no cyanosis or clubbing, extremities motor strength 5/5 Skin: no rashes, warm and dry normal turgor Neurologic: PERRL, EOMI, accommodation nl, no face palsy, no dysarthria CN's II- XI intact bilaterally and moves all extremities Psychiatric: A+Ox3, euthymic affect Lymphatic: no cervical or axillary lymphadenopathy : deferred Discharge Data Allergies Allergy/AdvReac Type Severity Reaction Status Date / Time naproxen Allergy Severe GI Bleed Unverified 06/10/22 15:08 amoxicillin [From Augmentin] Allergy Unknown Unknown Verified 06/10/22 15:08 clavulanic acid Allergy Unknown Unknown Verified 06/10/22 15:08 [From Augmentin] morphine AdvReac Intermediate difficulty Unverified 06/10/22 15:08 breathing fluticasone AdvReac Mild hives Unverified 06/10/22 15:08 Consultations 06/10/22 13:54 ED Decision to Admit Stat 06/10/22 15:32 Consult Cardiology Routine Hospital Course (1) Accelerated junctional rhythm: (2) Upper respiratory infection: (3) Hypothyroidism: (4) HTN (hypertension): (5) Multiple sclerosis: (6) GERD (gastroesophageal reflux disease): (7) Depressive disorder: (8) Asthma: (9) MGUS (monoclonal gammopathy of unknown significance): (10) Diastolic CHF: (11) Cough: Plan 81-year-old female with past medical history including diastolic CHF, hypertension, multiple sclerosis, MGUS, hypothyroidism presented with persistent cough for several weeks since her discharge from the hospital. She also complained of generalized fatigue. She reported cough with mucoid discharge; no hemoptysis or shortness of breath. On presentation to the ED, she was saturating well in room air, afebrile and normotensive. CBC was remarkable for leukocytosis. She had accelerated junctional rhythm on presentation to the ED which converted to sinus rhythm. She was admitted to telemetry floor for further care. She was started on antibiotics, symptomatic treatment for cough and PT OT evaluation. Echo was done; showed ejection fraction of 60 to 65% with grade 1 diastolic dysfunction. She remained in sinus rhythm throughout her hospitalization after admission to the floor. Cardiology recommended continuation of metoprolol and losartan. Patient was discharged with 4 more days of oral antibiotics and Medrol Dosepak. She was asked to follow-up with her PCP. Total Time Total Time Spent Total Time Spent (In Minutes): 35 Total Time Includes: Examination of the Patient, Discharge Planning, Medication Reconciliation, Communication With Other Providers and Other Discharge Plan Discharge Items Patient Disposition: Home - Self-Care Reason For Visit: WEAKNESS,SOB Discharge Diagnosis: Post- Viral cough Supraventricular tachycardia Activity: Resume your previous activity Non-emergency contact: Primary Care Provider Call non-emergency contact if: you have any medication questions and your symptoms worsen Follow-up/Referrals: Valerie Tan MD [Primary Care Provider] - Diet: Regular Addtl Attending Provider Instructions: You are admitted in the hospital for Pos-viral cough and High heart rate. You are prescribed Cefdinir (Antibiotics) 300mg twice daily to be taken for 4 days You are also prescribed Medrol dose travis. Please follow the instructions for dosing. The prescription was phoned into the pharmacy and is not present in the discharge paperwork. The prescription are sent to your pharmacy at [facility]. Please continue to take all your other medication as prescribed before If you experience increasing cough, fever, generalized weakness; please call your primary care doctor to seek medical attention. Pending Studies at Discharge: No Stand-Alone Forms: [facility], Smoking Cessation Medications and DC Order Prescriptions: New cefdinir 300 mg capsule 300 mg PO BID 4 Days Qty: 8 0RF Continued levothyroxine 75 mcg tablet 75 mcg PO DAILYBB Qty: 30 omeprazole 40 mg capsule,delayed release(DR/EC) 40 mg PO QAM Label Comments: 40 mg PO TAke 1 capsule 30 min before breakfast and dinner; Rx Instructions: 40 mg PO TAke 1 capsule 30 min before breakfast and dinner; albuterol sulfate 90 mcg/actuation HFA aerosol inhaler 2 puffs inhalation Q6H PRN (Reason: shortness of breath) Qty: 1 spironolactone 25 mg tablet 12.5 mg PO QAM Label Comments: 25 mg PO Take 1/2 tablet daily; Rx Instructions: 25 mg PO Take 1/2 tablet daily; metoprolol tartrate [Lopressor] 100 mg tablet 100 mg PO QAM Rx Instructions: Take 1 tablet in the morning and 1/2 tablet in the afternoon. losartan [Cozaar] 25 mg tablet 25 mg PO QAM furosemide [Lasix] 20 mg tablet 40 mg PO QAM cyclobenzaprine 5 mg tablet 5 mg PO HS PRN (Reason: Muscle Spasm) metoprolol tartrate [Lopressor] 100 mg tablet 50 mg PO QPM amlodipine 5 mg tablet 5 mg PO DAILY folic acid 1 mg tablet 1 mg PO DAILY Mucinex DM 30-600 mg Tablet Extended Release 12 Hr 1 tab PO QAM Discharge Orders: Discharge Order (Routine); Ordered 06/11/22 Ordered By: Anuj Childress Admission Data Admit Date/Time: 06/10/22 14:01 Attending Provider: Anuj Childress Admit Provider: Anuj Childress Primary Care Provider: Valerie Tan Other Providers: Chris Centeno ; Anuj Childress Other Interventions: Discharge Summary Assessment (RN) Last Done: 06/11/22 14:51
== END 2022-06-11 15:39 | disposition home or self-care (01) | DRG 204 ==
LOC: ED 09:35 → 2W 14:01